=== PATIENT | male | born 1930 | race Caucasian/White ===

== ENCOUNTER 2018-09-10 06:38 | Day surgery (SDC) | payer MEDICARE, BC ==
[2018-09-10] MEDS ORDERED: Dextrose 5%-Lactated Ringers 1,000 ML IV SCH (07:15)
[2018-09-10] MEDS ORDERED: fentaNYL 100 MCG/2 ML SDV ONE (07:51)
[2018-09-10] MEDS ORDERED: Propofol 200 MG/20 ML SDV ONE ×2 (07:51→09:27)
[2018-09-10] MEDS ORDERED: ceFAZolin 2 GM in Premix Bag 1 BAG IV ONE (08:15)
[2018-09-10] MEDS ORDERED: Bupivacaine 0.5% 50 ML MDV ONE (08:22)
[2018-09-10] MEDS ORDERED: Lidocaine 1% with EPINEPHrine 1:100,000 50 ML MDV ONE (08:22)
[2018-09-10] MEDS ORDERED: Acetaminophen 325 MG Tab PO ONE (10:09)
[2018-09-10] MEDS ORDERED: [UNRECOGNIZED DRUG - OTHER] IV ONE (10:09)
[2018-09-10] MEDS ORDERED: diphenhydrAMINE 25 MG Cap PO ONE (10:09)
[2018-09-10] MEDS ORDERED: IMMUNE GLOBULIN IV ONE (10:09)
[2018-09-10] MEDS ORDERED: Sodium Chloride 0.9% 1,000 ML IV SCH (10:50)
[2018-09-10] MEDS ORDERED: [UNRECOGNIZED DRUG - MIXTURE] IV ONE (11:00)
--- NOTE | 2018-09-16 15:16 | OR ---
DATE OF PROCEDURE: 09/10/2018 PREOPERATIVE DIAGNOSIS: Indication for central venous access. POSTOPERATIVE DIAGNOSIS: Indication for central venous access. OPERATIVE PROCEDURE: Placement of Bard port via left subclavian vein approach ([id number]). ANESTHESIA: Local plus IV sedation. INDICATIONS FOR PROCEDURE: This is an 88-year-old with diagnosis of chronic inflammatory demyelinating polyneuropathy, who receives more or less weekly IV immunoglobulin infusions and, at this point, has very limited peripheral venous access, and central line is to be placed to facilitate his ongoing care. Potential risks of the port placement including bleeding, infection, injury to the vasculature and/or lungs, the possibility of the port becoming infected or occluded were all reviewed, and the patient wishes to proceed. DETAILS OF PROCEDURE: The patient was taken to the operating room and placed in a supine position. IV sedation was administered, after which the upper chest and neck areas were prepped and draped. The left subclavian area was then anesthetized with 1% lidocaine, and the left subclavian vein was cannulated. A guidewire was passed and manipulated into the superior vena cava. Some additional local was then injected and a transverse infraclavicular incision was made, carried down through the skin and subcutaneous tissue, and pectoralis major fascia. At that plane, a port pocket was constructed bluntly, and the Bard port was then assembled, flushed with heparinized saline, and the port placed into the pocket. The catheter was cut such that the tip would lie in the area of the superior vena cava and right atrial junction. Over the introducer and peel-away catheter, the Bard port catheter was placed without difficulty. Good in and outflow was noted, and the port was flushed with heparinized saline once again. Incision was then closed with 4-0 Vicryl stitch deep and a 5-0 Vicryl subcuticular stitch. Dressing was applied. The patient was taken to the recovery room in a satisfactory condition. Port was left to access today as he is undergoing the IVIG infusion later today. Abhishek Blanca MD /[id number]
== END 2018-09-10 14:20 | disposition home or self-care (01) ==
LOC: JP.SDS 06:38
PROVIDERS: ATTEND Surgery
DX: G61.81 Chronic inflammatory demyelinating polyneuritis (principal); G30.9 Alzheimer's disease, unspecified; N40.0 Benign prostatic hyperplasia without lower urinary tract symptoms
CPT/HCPCS: 36561; 76000; A9270; C1788; J1568; J1572; J1642; J2020; J2704; J3010; J3490; J7030; J7042

== ENCOUNTER 2018-10-19 12:45 | Inpatient (IN) | payer MEDICARE, BC ==
[2018-10-19] MEDS ORDERED: Sodium Chloride 0.9% 1,000 ML IV SCH ×2 (13:15→15:30)
--- NOTE | 2018-10-19 13:37 | EDM.PDOC ---
ED HPI GENERAL MEDICAL PROBLEM - General Chief Complaint: General Stated Complaint: MEDICAL [facility]IA [facility] Time Seen by Provider: 10/19/18 13:00 Source of Information: Reports: Patient, EMS, Family History Limitations: Reports: Altered Mental Status - History of Present Illness INITIAL COMMENTS - FREE TEXT/NARRATIVE: 88-year-old male who is usually very engaged, active and alert over the past 12- 24 hours has been somnolent and less responsive. He is still answering questions , has no specific complaints. Denies any pain or falls. No fever. He was hypotensive on arrival per EMS and in route, his blood pressure is 80/43. He is not tachycardic. No active bleeding, no nausea or vomiting or diarrhea. 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 No known falls or trauma. Onset: Gradual (12-24 hours) Associated Symptoms: Reports: Confusion, Malaise, Weakness. Denies: Chest Pain , Cough, Diaphoresis, Nausea/Vomiting, Shortness of Breath - Related Data Allergies Allergy/AdvReac Type Severity Reaction Status Date / Time No Known Allergies Allergy Verified 10/19/18 13:01 Home Meds: Home Meds Escitalopram Oxalate 10 mg PO DAILY 07/16/18 [History] Lactobacillus Acidophilus [Probiotic] 1 each PO BID 07/16/18 [History] Memantine HCl/Donepezil HCl [Namzaric 7 mg-10 mg Capsule] 7 mg PO DAILY [History] Multivitamin [Multivitamins] 1 each PO DAILY 07/16/18 [History] Mycophenolate Mofetil 1,000 mg PO BID 07/16/18 [History] Tamsulosin HCl 0.4 mg PO DAILY 07/16/18 [History] Aspirin/Acetaminophen/Caffeine [Extra Pain Relief Caplet] 1 tab PO DAILY [History] Mirtazapine 15 mg PO BEDTIME 10/19/18 [History] Past Medical History HEENT History: Reports: Hard of Hearing Genitourinary History: Reports: BPH Neurological History: Reports: Alzheimers Disease, Other (See Below) 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 Psychiatric History: Reports: Anxiety Immunologic History: Reports: Other (See Below) Other 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 - Infectious Disease History Infectious Disease History: Reports: Chicken Pox, Shingles - Past Surgical History HEENT Surgical History: Reports: Cataract Surgery GI Surgical History: Reports: Colonoscopy Musculoskeletal Surgical History: Reports: Other (See Below) Other Musculoskeletal Surgeries/Procedures:: knee surgery after kicked by horse Social & Family History - Family History Family Medical History: Noncontributory - Tobacco Use Smoking Status *Q: Never Smoker - Caffeine Use Caffeine Use: Reports: Coffee - Recreational Drug Use Recreational Drug Use: No ED ROS GENERAL - Review of Systems Review Of Systems: See Below Constitutional: Denies: Fever, Chills Respiratory: Denies: Shortness of Breath Cardiovascular: Denies: Chest Pain GI/Abdominal: Reports: Decreased Appetite. Denies: Abdominal Pain, Nausea, Vomiting Skin: Reports: Pallor Neurological: Reports: Weakness. Denies: Dizziness, Headache ED EXAM, GENERAL - Physical Exam Exam: See Below Exam Limited By: No Limitations General Appearance: No Apparent Distress, Lethargic, Other (Patient is arousable by voice and tactile stimulation, but tends to fall asleep without stimulation) Eye Exam: Bilateral Eye: EOMI Head: Atraumatic Neck: Non-Tender Respiratory/Chest: No Respiratory Distress, Lungs Clear Cardiovascular: Regular Rate, Rhythm, Extra Beats. No: Tachycardia GI/Abdominal: Soft, Non-Tender Extremities: No: Pedal Edema Neurological: Inattentive, Slow to Respond Psychiatric: Flat Affect Skin Exam: Warm, Dry Course - Vital Signs Last Recorded V/S: Last Vital Signs Temp 100.6 F 10/20/18 05:06 Pulse 74 10/20/18 05:01 Resp 18 10/20/18 05:01 BP 104/44 L 10/20/18 05:01 Pulse Ox 93 L 10/20/18 05:01 - Orders/Labs/Meds Orders: Active Orders 24 hr Category Date Time Status CULTURE URINE [RM] Stat Lab 10/19/18 14:38 Received Medication Orders Acetaminophen (Tylenol) 650 mg PO Q4H PRN PRN Reason: Pain (Mild 1-3)/fever Last Admin: 10/20/18 04:36 Dose: 650 mg Dimethicone/Zinc Oxide (Rash Relief-Zinc Oxide [place]) 1 gm TOP ASDIRECTED PRN PRN Reason: redness Last Admin: 10/19/18 20:10 Dose: 1 spray Escitalopram Oxalate (Lexapro) 10 mg PO DAILY [facility] Haloperidol Lactate (Haldol) 1 mg IVPUSH Q4H PRN PRN Reason: Agitation Ceftriaxone Sodium 1 gm/ (Sodium Chloride) 50 mls @ 100 mls/hr IV Q24H [facility] Sodium Chloride (Normal Saline) 1,000 mls @ 125 mls/hr IV ASDIRECTED [facility] Last Admin: 10/20/18 01:42 Dose: 125 mls/hr Infusion: 10/20/18 01:42 Dose: 125 mls/hr Admin: 10/19/18 18:05 Dose: 125 mls/hr Lactobacillus Rhamnosus (Culturelle) 1 cap PO BID [facility] Last Admin: 10/19/18 20:09 Dose: 1 cap Lorazepam (Ativan) 0.5 mg IVPUSH Q4H PRN PRN Reason: Nausea/Vomiting Magnesium Hydroxide (Milk Of Magnesia) 30 ml PO Q12H PRN PRN Reason: Constipation Melatonin (Melatonin) 9 mg PO BEDTIME [facility] Last Admin: 10/19/18 20:09 Dose: 9 mg Mirtazapine (Remeron) 15 mg PO BEDTIME [facility] Last Admin: 10/19/18 20:09 Dose: 15 mg Mycophenolate Mofetil (Cellcept) 1,000 mg PO BID [facility] Last Admin: 10/19/18 20:26 Dose: 1,000 mg [Namzaric 7 Mg-10 Mg Capsule]*Pt Own Med * 7 mg PO DAILY [facility] Ondansetron HCl (Zofran Odt) 4 mg PO Q6H PRN PRN Reason: Nausea able to take PO Ondansetron HCl (Zofran) 4 mg IV Q6H PRN PRN Reason: Nausea/Vomiting Senna/Docusate Sodium (Senna Plus) 1 tab PO BID PRN PRN Reason: Constipation Tamsulosin HCl (Flomax) 0.4 mg PO DAILY [facility] Labs: Laboratory Tests 10/19/18 10/19/18 10/19/18 Range/Units 13:25 13:25 14:18 WBC 16.5 H (4.5-11.0) K/uL RBC 3.35 L (4.30-5.90) M/uL Hgb 9.9 L (12.0-15.0) g/dL Hct 32.3 L (40.0-54.0) % MCV 96 (80-98) fL MCH 30 (27-31) pg MCHC 31 L (32-36) % Plt Count 113 L (150-400) K/uL Add Manual Diff Yes Neutrophils % (Manual) 81 H (36-66) % Band Neutrophils % 10 (5-11) % Lymphocytes % (Manual) 4 L (24-44) % Monocytes % (Manual) 5 (2-6) % Sodium 139 L (140-148) mmol/L Potassium 3.4 L (3.6-5.2) mmol/L Chloride 103 (100-108) mmol/L Carbon Dioxide 24 (21-32) mmol/L Anion Gap 15.4 H (5.0-14.0) mmol/L BUN 41 H (7-18) mg/dL Creatinine 1.9 H (0.8-1.3) mg/dL Est Cr Clr Drug Dosing 27.94 mL/min Estimated GFR (MDRD) 34 L (>60) Glucose 170 H (74-106) mg/dL Calcium 8.4 L (8.5-10.1) mg/dL Total Bilirubin 0.7 (0.2-1.0) mg/dL AST 66 H (15-37) U/L ALT 121 H (12-78) U/L Alkaline Phosphatase 153 H (46-116) U/L Troponin I 0.267 H* (0.000-0.056) ng/mL Total Protein 7.1 (6.4-8.2) g/dL Albumin 2.2 L (3.4-5.0) g/dL Globulin 4.9 H (2.3-3.5) g/dL Albumin/Globulin Ratio 0.5 L (1.2-2.2) Urine Color Yellow (YELLOW) Urine Appearance Cloudy A (CLEAR) Urine pH 5.5 (5.0-8.0) Ur Specific [place] 1.025 (1.008-1.030) Urine Protein 100 H (NEGATIVE) mg/dL Urine Glucose (UA) Negative (NEGATIVE) mg/dL Urine Ketones Negative (NEGATIVE) mg/dL Urine Occult Blood Trace-intact H (NEGATIVE) Urine Nitrite Negative (NEGATIVE) Urine Bilirubin Small H (NEGATIVE) Urine Urobilinogen 1.0 (0.2-1.0) EU/dL Ur Leukocyte Esterase Negative (NEGATIVE) Urine RBC 0-5 (0-5) Urine WBC 0-5 (0-5) Ur Epithelial Cells Moderate Amorphous Sediment Many Urine Bacteria Many Urine Mucus Moderate Urine Other Meds: Medications Generic Name Dose Route Start Last Admin Trade Name Freq PRN Reason Stop Dose Admin Acetaminophen 650 mg 10/19/18 16:31 10/20/18 04:36 Tylenol PO 650 mg Q4H PRN Administration Pain (Mild 1-3)/fever Dimethicone/Zinc Oxide 1 gm 10/19/18 19:53 10/19/18 20:10 Rash Relief-Zinc Oxide [place] TOP 1 spray ASDIRECTED PRN Administration redness Escitalopram Oxalate 10 mg 10/20/18 09:00 Lexapro PO DAILY [facility] Haloperidol Lactate 1 mg 10/19/18 16:31 Haldol IVPUSH Q4H PRN Agitation Ceftriaxone Sodium 1 gm/ 50 mls @ 100 mls/hr 10/20/18 15:00 Sodium Chloride IV Q24H [facility] Sodium Chloride 1,000 mls @ 125 mls/hr 10/19/18 16:31 10/20/18 01:42 Normal Saline IV 125 mls/hr ASDIRECTED [facility] Administration Lactobacillus Rhamnosus 1 cap 10/19/18 21:00 10/19/18 20:09 Culturelle PO 1 cap BID [facility] Administration Lorazepam 0.5 mg 10/19/18 16:31 Ativan IVPUSH Q4H PRN Nausea/Vomiting Magnesium Hydroxide 30 ml 10/19/18 16:31 Milk Of Magnesia PO Q12H PRN Constipation Melatonin 9 mg 10/19/18 21:00 10/19/18 20:09 Melatonin PO 9 mg BEDTIME [facility] Administration Mirtazapine 15 mg 10/19/18 21:00 10/19/18 20:09 Remeron PO 15 mg BEDTIME [facility] Administration Mycophenolate Mofetil 1,000 mg 10/19/18 21:00 10/19/18 20:26 Cellcept PO 1,000 mg BID [facility] Administration [Namzaric 7 Mg-10 Mg 7 mg 10/20/18 09:00 Capsule]*Pt Own Med PO * DAILY [facility] Ondansetron HCl 4 mg 10/19/18 16:31 Zofran Odt PO Q6H PRN Nausea able to take PO Ondansetron HCl 4 mg 10/19/18 16:31 Zofran IV Q6H PRN Nausea/Vomiting Senna/Docusate Sodium 1 tab 10/19/18 16:31 Senna Plus PO BID PRN Constipation Tamsulosin HCl 0.4 mg 10/20/18 09:00 Flomax PO DAILY T[facility] Discontinued Medications Generic Name Dose Route Start Last Admin Trade Name Matias PRN Reason Stop Dose Admin Sodium Chloride 1,000 mls @ 500 mls/hr 10/19/18 13:15 10/19/18 13:26 Normal Saline IV 500 mls/hr ASDIRECTED [facility] Administration Ceftriaxone Sodium 1 gm/ 50 mls @ 100 mls/hr 10/19/18 14:35 10/19/18 14:49 Sodium Chloride IV 10/19/18 15:04 100 mls/hr ONETIME ONE Administration Sodium Chloride 1,000 mls @ 999 mls/hr 10/19/18 15:30 Normal Saline IV 10/19/18 16:31 ASDIRECTED [facility] - Re-Assessments/Exams Free Text/Narrative Re-Assessment/Exam: 10/19/18 13:52 CBC, CMP and troponin obtained, 1 L of normal saline bolus initiated. UA will be attempted and a CT of the head obtained. 10/19/18 14:46 White count 16,000, hemoglobin 9.9. Troponin returned elevated at 0.26. Renal function is also poor, and we have no previous labs to compare. We will try to get in to [place] records to achieve some baseline laboratory results. Patient is DNR and family left at this time, we will wait to return to see how aggressive they want treatment. He'll be given 1 g of Rocephin IV as his catheter UA shows many bacteria but no inflammatory response. Patient woke up while being catheterized and commented that it hurt. As soon as the procedure was done he fell back asleep. CT of the head was negative. Departure - Departure Time of Disposition: 17:22 Disposition: Admitted As Inpatient 67 Clinical Impression: Complicated urinary tract infection, CKD (chronic kidney disease), stage III Change in mental status Qualifiers: Altered mental status type: somnolence Qualified Code(s): R40.0 - Somnolence - Discharge Information - My Orders Last 24 Hours: My Active Orders 10/19/18 14:38 CULTURE URINE [RM] Stat - Assessment/Plan Last 24 Hours: My Active Orders 10/19/18 14:38 CULTURE URINE [RM] Stat
--- NOTE | 2018-10-19 14:22 | CRLCT ---
INDICATION: Somnolence, mental status change COMPARISON: none TECHNIQUE: A CT volumetric acquisition was performed of the brain without IV contrast. Please note that all CT scans at this facility use dose modulation, iterative reconstruction, and/or weight-based dosing when appropriate to reduce radiation dose to as low as reasonably achievable. FINDINGS: Generalized cortical atrophy is present. No intracranial mass, mass effect or hemorrhage. No extra-axial fluid collection. Patchy areas of low attenuation in the white matter bilaterally which are nonspecific but likely related to small vessel ischemic disease. Visualized sinuses are clear. No fracture. Bilateral hearing aid hardware. IMPRESSION: No acute intracranial pathology. Mild generalized cortical atrophy and chronic white matter changes. Please note that all CT scans at this facility use dose modulation, iterative reconstruction, and/or weight-based dosing when appropriate to reduce radiation dose to as low as reasonably achievable. Dictated by Gerard Smith MD @ Oct 19 2018 2:15PM Signed by Dr. Gerard Smith @ Oct 19 2018 2:19PM
[2018-10-19] MEDS ORDERED: cefTRIAXone 1 GM in Sodium Chloride 0.9% 50 ML IV ONE (14:35)
--- NOTE | 2018-10-19 15:30 | PCM.HP.2 ---
H&P History of Present Illness - General Date of Service: 10/19/18 Admit Problem/Dx: Admission Diagnosis/Problem Admission Diagnosis/Problem Complicated urinary tract infection Source of Information: Family, Provider. No: Patient History Limitations: Reports: Altered Mental Status - History of Present Illness Initial Comments - Free Text/Narative: CC: lethargic HPI: [place] presents to the ED from [facility] living by ambulance. He has advanced dementia and is not able to provide reliable history. History is gathered from his family and emergency room personnel. Assisted living staff noted that the patient was more lethargic than usual today. They report that normally he is active and alert. Family noticed that he was a little off yesterday but nothing specific. When I attempted to get a review of systems the patient was not sure if he had any of the discussed symptoms. He was not sure if he had pain. He was not able to provide any sort of reliable usable history. Workup in the emergency room did reveal suspicion for urinary tract infection with many bacteria in his urine. His creatinine is 1.9 with a GFR of 34 and unknown baseline. Troponin is elevated at 0.26. He is hypotensive but not tachycardic. He has received 1 L of fluid so far. Case was discussed with his family. They were not interested in transfer for aggressive intervention such as cardiac catheterization. They report date declining quality of life and are not interested in aggressive or potentially painful interventions. They were agreeable to hospitalization for antibiotics and IV fluids to see if this condition can be treated conservatively. - Related Data Allergies/Adverse Reactions: Allergies Allergy/AdvReac Type Severity Reaction Status Date / Time No Known Allergies Allergy Verified 10/19/18 13:01 Home Medications: Home Meds Escitalopram Oxalate 10 mg PO DAILY 07/16/18 [History] Lactobacillus Acidophilus [Probiotic] 1 each PO BID 07/16/18 [History] Memantine HCl/Donepezil HCl [Namzaric 7 mg-10 mg Capsule] 7 mg PO DAILY [History] Mirtazapine 15 mg PO DAILY 07/16/18 [History] Multivitamin [Multivitamins] 1 each PO DAILY 07/16/18 [History] Mycophenolate Mofetil 1,000 mg PO BID 07/16/18 [History] Tamsulosin HCl 0.4 mg PO DAILY 07/16/18 [History] Aspirin/Acetaminophen/Caffeine [Extra Pain Relief Caplet] 1 tab PO DAILY [History] Past Medical History HEENT History: Reports: Hard of Hearing Genitourinary History: Reports: BPH Neurological History: Reports: Alzheimers Disease, Other (See Below) 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 Psychiatric History: Reports: Anxiety Immunologic History: Reports: Other (See Below) Other 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 - Infectious Disease History Infectious Disease History: Reports: Chicken Pox, Shingles - Past Surgical History HEENT Surgical History: Reports: Cataract Surgery GI Surgical History: Reports: Colonoscopy Musculoskeletal Surgical History: Reports: Other (See Below) Other Musculoskeletal Surgeries/Procedures:: knee surgery after kicked by horse Social & Family History - Family History Family Medical History: Noncontributory - Tobacco Use Smoking Status *Q: Never Smoker - Caffeine Use Caffeine Use: Reports: Coffee - Alcohol Use Alcohol Use History: No - Recreational Drug Use Recreational Drug Use: No H&P Review of Systems - Review of Systems: Review Of Systems: Unable To Obtain (advanced dementia) Exam - Exam Exam: See Below - Vital Signs Vital Signs: Last Vital Signs Temp 36.3 C 10/19/18 13:27 Pulse 67 10/19/18 14:24 Resp 20 10/19/18 14:24 BP 81/42 L 10/19/18 14:24 Pulse Ox 95 10/19/18 14:24 Weight: 72.121 kg - Exam Quality Assessment: No: Supplemental Oxygen General: Alert, Cooperative. No: Oriented, Mild Distress HEENT: Conjunctiva Clear. No: Mucosa Moist & [place] (dry), Scleral Icterus Neck: Supple, Trachea Midline. No: Lymphadenopathy Lungs: Clear to Auscultation, Normal Respiratory Effort Cardiovascular: Regular Rate, Regular Rhythm, Other (port left upper chest ). No: Systolic Murmur GI/Abdominal Exam: Normal Bowel Sounds, Soft, Non-Tender, No Distention Extremities: No Pedal Edema. No: Increased Warmth Skin: Warm, Dry, Intact. No: Ecchymosis Neuro Extensive - Mental Status: Alert, Nl Response to Commands. No: Oriented x3 Neuro Extensive - Motor, Sensory, Reflexes: No: Dysarthria, Abnormal Motor, Tremor Psychiatric: Alert, Normal Affect - Patient Data Lab Results Last 24 hrs: Laboratory Results - last 24 hr 10/19/18 10/19/18 10/19/18 Range/Units 13:25 13:25 14:18 WBC 16.5 H (4.5-11.0) K/uL RBC 3.35 L (4.30-5.90) M/uL Hgb 9.9 L (12.0-15.0) g/dL Hct 32.3 L (40.0-54.0) % MCV 96 (80-98) fL MCH 30 (27-31) pg MCHC 31 L (32-36) % Plt Count 113 L (150-400) K/uL Add Manual Diff Yes Neutrophils % (Manual) 81 H (36-66) % Band Neutrophils % 10 (5-11) % Lymphocytes % (Manual) 4 L (24-44) % Monocytes % (Manual) 5 (2-6) % Sodium 139 L (140-148) mmol/L Potassium 3.4 L (3.6-5.2) mmol/L Chloride 103 (100-108) mmol/L Carbon Dioxide 24 (21-32) mmol/L Anion Gap 15.4 H (5.0-14.0) mmol/L BUN 41 H (7-18) mg/dL Creatinine 1.9 H (0.8-1.3) mg/dL Est Cr Clr Drug Dosing 27.94 mL/min Estimated GFR (MDRD) 34 L (>60) Glucose 170 H (74-106) mg/dL Calcium 8.4 L (8.5-10.1) mg/dL Total Bilirubin 0.7 (0.2-1.0) mg/dL AST 66 H (15-37) U/L ALT 121 H (12-78) U/L Alkaline Phosphatase 153 H (46-116) U/L Troponin I 0.267 H* (0.000-0.056) ng/mL Total Protein 7.1 (6.4-8.2) g/dL Albumin 2.2 L (3.4-5.0) g/dL Globulin 4.9 H (2.3-3.5) g/dL Albumin/Globulin Ratio 0.5 L (1.2-2.2) Urine Color Yellow (YELLOW) Urine Appearance Cloudy A (CLEAR) Urine pH 5.5 (5.0-8.0) Ur Specific [place] 1.025 (1.008-1.030) Urine Protein 100 H (NEGATIVE) mg/dL Urine Glucose (UA) Negative (NEGATIVE) mg/dL Urine Ketones Negative (NEGATIVE) mg/dL Urine Occult Blood Trace-intact H (NEGATIVE) Urine Nitrite Negative (NEGATIVE) Urine Bilirubin Small H (NEGATIVE) Urine Urobilinogen 1.0 (0.2-1.0) EU/dL Ur Leukocyte Esterase Negative (NEGATIVE) Urine RBC 0-5 (0-5) Urine WBC 0-5 (0-5) Ur Epithelial Cells Moderate Amorphous Sediment Many Urine Bacteria Many Urine Mucus Moderate Urine Other Result Diagrams: 10/19/18 13:25 10/19/18 13:25 Imaging Impressions Last 24 hrs: Head CT - images personally reviewed - mild atrophy but no acute findings. No mass, bleed or stroke *Q Meaningful Use (ADM) - VTE Risk Assess *Q Each Risk Factor Represents 1 Point: Sepsis Total Score 1 Point Risk Factors: 1 Each Risk Factor Represents 2 Points: None Total Score 2 Point Risk Factors: 0 Each Risk Factor Represents 3 Points: Age 75 Years or Greater Total Score 3 Point Risk Factors: 3 Each Risk Factor Represents 5 Points: None Total Score 5 Point Risk Factors: 0 Venous Thromboembolism Risk Factor Score *Q: 4 - Problem List (1) Complicated urinary tract infection SNOMED Code(s): 86643953 ICD Code: N39.0 - URINARY TRACT INFECTION, SITE NOT SPECIFIED Status: Acute Current Visit: Yes (2) Sepsis SNOMED Code(s): 95209912 ICD Code: A41.9 - SEPSIS, UNSPECIFIED ORGANISM Status: Acute Current Visit: Yes Qualifiers: Sepsis type: sepsis due to unspecified organism Sepsis acute organ dysfunction status: with acute organ dysfunction Severe sepsis acute organ dysfunction type: unspecified Severe sepsis shock status: without septic shock Qualified Code(s): A41.9 - Sepsis, unspecified organism; R65.20 - Severe sepsis without septic shock (3) Elevated troponin SNOMED Code(s): 805262585, 504716667, 306561105 ICD Code: R74.8 - ABNORMAL LEVELS OF OTHER SERUM ENZYMES Status: Acute Current Visit: Yes (4) CKD (chronic kidney disease), stage III SNOMED Code(s): 760268881 ICD Code: N18.3 - CHRONIC KIDNEY DISEASE, STAGE 3 (MODERATE) Status: Chronic Current Visit: Yes (5) CIDP (chronic inflammatory demyelinating polyneuropathy) SNOMED Code(s): 080451430 ICD Code: G61.81 - CHRONIC INFLAMMATORY DEMYELINATING POLYNEURITIS Status: Chronic Current Visit: Yes (6) Alzheimer's dementia without behavioral disturbance SNOMED Code(s): 99087466 ICD Code: G30.9 - ALZHEIMER'S DISEASE, UNSPECIFIED; F02.80 - DEMENTIA IN OTH DISEASES CLASSD ELSWHR W/O BEHAVRL DISTURB Status: Chronic Current Visit: Yes Qualifiers: Alzheimer's disease onset: late-onset Qualified Code(s): G30.1 - Alzheimer' s disease with late onset; F02.80 - Dementia in other diseases classified elsewhere without behavioral disturbance (7) Encounter for palliative care SNOMED Code(s): 565720171 ICD Code: Z51.5 - ENCOUNTER FOR PALLIATIVE CARE Status: Acute Current Visit: Yes Problem List Initiated/Reviewed/Updated: Yes Orders Last 24hrs: Active Orders 24 hr Category Date Time Status Patient Status Manage Transfer [TRANSFER] Routine ADT 10/19/18 15:20 Ordered CULTURE URINE [RM] Stat Lab 10/19/18 14:38 Received Sodium Chloride 0.9% [Normal Saline] 1,000 ml Med 10/19/18 13:15 Active IV ASDIRECTED Sodium Chloride 0.9% [Normal Saline] 1,000 ml Med 10/19/18 15:30 Active IV ASDIRECTED Resuscitation Status Routine Resus Stat 10/19/18 15:22 Ordered Medication Orders Sodium Chloride (Normal Saline) 1,000 mls @ 500 mls/hr IV ASDIRECTED TERRANCE Last Admin: 10/19/18 13:26 Dose: 500 mls/hr Sodium Chloride (Normal Saline) 1,000 mls @ 999 mls/hr IV ASDIRECTED TERRANCE Stop: 10/19/18 16:31 Assessment/Plan Comment:: ASSESSMENT AND PLAN - Complicated urinary tract infection with sepsis - patient has known BPH. Evidence for sepsis includes hypotension, confusion and organ dysfunction including elevated troponin and elevated creatinine from baseline (suspected). He has received 1 L fluid in the emergency room. He has received antibiotics and cultures have been obtained. -Continue empiric ceftriaxone -Second liter of fluid via bolus -Gentle infusion of fluids after bolus -Follow-up urine culture Suspected acute on chronic kidney disease - unknown baseline for his kidney function. Creatinine currently at 1.9. -Management as above -Repeat labs in the morning Chronic inflammatory demyelinating polyneuropathy - patient is on immune suppressing medications at this time. He receives weekly infusions of IVIG. -Hold off on weekly treatment until infection improves -Continue MMF Late onset Alzheimer's dementia without behavioral disturbance - stable at this time. -Continue home medications -Melatonin at bedtime Encounter for palliative care - patient has a DO NOT RESUSCITATE order. Family is not interested in transfer for aggressive workup or intervention with his elevated troponin. They are interested in palliative and conservative management for this infection and resulting conditions. Maintenance issues - - DVT prophylaxis - REGGIE stockings - GI prophylaxis - not indicated - Nutrition - regular diet as tolerated - Mckay catheter - not indicated CODE STATUS - DNR/DNI Admission justification - This patient will be admitted for inpatient services and is medically appropriate meeting medical necessity for inpatient admission as outlined in my documentation. I reasonably expect the patient will require inpatient services that span a period time over 2 midnights. I reasonably expect this patient to be discharged or transferred within 96 hours [facility] Disposition - I would anticipate discharge either back to assisted living or possibly to the snf Primary care physician - Samir Crump M.D. - Mortality Measure Prognosis:: Poor
[2018-10-19] MEDS ORDERED: Ondansetron 4 MG/2 ML SDV IV PRN (16:31)
[2018-10-19] MEDS ORDERED: LORazepam 2 MG/ML SDV IVPUSH PRN (16:31)
[2018-10-19] MEDS ORDERED: Haloperidol Lactate 5 MG/ML SDV IVPUSH PRN (16:31)
[2018-10-19] MEDS ORDERED: Magnesium Hydroxide 400 MG/5 ML Susp 30 ML Cup PO PRN (16:31)
[2018-10-19] MEDS: Sodium Chloride 0.9% 1,000 ML IV SCH (18:05)
[2018-10-19] MEDS ORDERED: Dimethicone 20%/Zinc Oxide 25% 56 GM Spray Bottle TOP PRN (19:53)
[2018-10-19] MEDS: Mirtazapine 15 MG Tab PO SCH (20:09)
[2018-10-19] MEDS: Lactobacillus Rhamnosus GG (Probiotic) Cap PO SCH (20:09)
[2018-10-19] MEDS: Melatonin 3 MG Tab PO SCH (20:09)
[2018-10-19] MEDS: Mycophenolate Mofetil 250 MG Cap PO SCH (20:26)
[2018-10-20] MEDS: Sodium Chloride 0.9% 1,000 ML IV SCH ×2 (01:42→18:13)
[2018-10-20] MEDS: Acetaminophen 325 MG Tab PO PRN (04:36)
[2018-10-20] MEDS: Escitalopram 10 MG Tab PO SCH (08:57)
[2018-10-20] MEDS: Tamsulosin 0.4 MG Cap.ER PO SCH (08:57)
[2018-10-20] MEDS: Lactobacillus Rhamnosus GG (Probiotic) Cap PO SCH ×2 (08:57→20:29)
[2018-10-20] MEDS: Mycophenolate Mofetil 250 MG Cap PO SCH ×2 (08:58→20:29)
--- NOTE | 2018-10-20 10:13 | PCM.PN ---
- General Info Date of Service: 10/20/18 Subjective Update: There were no acute events overnight. The patient slept well. He reports that he feels well and offers no complaints. No complaints of shortness of breath or abdominal pain. Not much of an appetite. He did have a fever overnight. Cultures are still pending. He is much more alert and interactive today. Functional Status: Reports: Pain Controlled, Tolerating Diet - Review of Systems General: Reports: Fever - Patient Data Vitals - Most Recent: Last Vital Signs Temp 36.4 C 10/20/18 07:37 Pulse 62 10/20/18 07:37 Resp 14 10/20/18 07:37 BP 96/44 L 10/20/18 07:37 Pulse Ox 97 10/20/18 07:37 Weight - Most Recent: 66.043 kg I&O - Last 24 Hours: Intake & Output 10/19/18 10/20/18 10/20/18 22:59 06:59 14:59 Intake Total 240 1704 Output Total 50 150 Balance 190 1554 Lab Results Last 24 Hours: Laboratory Results - last 24 hr 10/19/18 10/19/18 10/19/18 Range/Units 13:25 13:25 14:18 WBC 16.5 H (4.5-11.0) K/uL RBC 3.35 L (4.30-5.90) M/uL Hgb 9.9 L (12.0-15.0) g/dL Hct 32.3 L (40.0-54.0) % MCV 96 (80-98) fL MCH 30 (27-31) pg MCHC 31 L (32-36) % Plt Count 113 L (150-400) K/uL Add Manual Diff Yes Neutrophils % (Manual) 81 H (36-66) % Band Neutrophils % 10 (5-11) % Lymphocytes % (Manual) 4 L (24-44) % Monocytes % (Manual) 5 (2-6) % Sodium 139 L (140-148) mmol/L Potassium 3.4 L (3.6-5.2) mmol/L Chloride 103 (100-108) mmol/L Carbon Dioxide 24 (21-32) mmol/L Anion Gap 15.4 H (5.0-14.0) mmol/L BUN 41 H (7-18) mg/dL Creatinine 1.9 H (0.8-1.3) mg/dL Est Cr Clr Drug Dosing 27.94 mL/min Estimated GFR (MDRD) 34 L (>60) Glucose 170 H (74-106) mg/dL Calcium 8.4 L (8.5-10.1) mg/dL Total Bilirubin 0.7 (0.2-1.0) mg/dL AST 66 H (15-37) U/L ALT 121 H (12-78) U/L Alkaline Phosphatase 153 H (46-116) U/L Troponin I 0.267 H* (0.000-0.056) ng/mL Total Protein 7.1 (6.4-8.2) g/dL Albumin 2.2 L (3.4-5.0) g/dL Globulin 4.9 H (2.3-3.5) g/dL Albumin/Globulin Ratio 0.5 L (1.2-2.2) Urine Color Yellow (YELLOW) Urine Appearance Cloudy A (CLEAR) Urine pH 5.5 (5.0-8.0) Ur Specific [place] 1.025 (1.008-1.030) Urine Protein 100 H (NEGATIVE) mg/dL Urine Glucose (UA) Negative (NEGATIVE) mg/dL Urine Ketones Negative (NEGATIVE) mg/dL Urine Occult Blood Trace-intact H (NEGATIVE) Urine Nitrite Negative (NEGATIVE) Urine Bilirubin Small H (NEGATIVE) Urine Urobilinogen 1.0 (0.2-1.0) EU/dL Ur Leukocyte Esterase Negative (NEGATIVE) Urine RBC 0-5 (0-5) Urine WBC 0-5 (0-5) Ur Epithelial Cells Moderate Amorphous Sediment Many Urine Bacteria Many Urine Mucus Moderate Urine Other 10/20/18 10/20/18 Range/Units 04:30 04:30 WBC 9.4 (4.5-11.0) K/uL RBC 3.47 L (4.30-5.90) M/uL Hgb 10.3 L (12.0-15.0) g/dL Hct 32.7 L (40.0-54.0) % MCV 94 (80-98) fL MCH 30 (27-31) pg MCHC 32 (32-36) % Plt Count 122 L (150-400) K/uL Add Manual Diff Neutrophils % (Manual) (36-66) % Band Neutrophils % (5-11) % Lymphocytes % (Manual) (24-44) % Monocytes % (Manual) (2-6) % Sodium 140 (140-148) mmol/L Potassium 3.3 L (3.6-5.2) mmol/L Chloride 106 (100-108) mmol/L Carbon Dioxide 25 (21-32) mmol/L Anion Gap 12.3 (5.0-14.0) mmol/L BUN 47 H (7-18) mg/dL Creatinine 1.5 H (0.8-1.3) mg/dL Est Cr Clr Drug Dosing TNP mL/min Estimated GFR (MDRD) 44 L (>60) Glucose 109 H (74-106) mg/dL Calcium 8.1 L (8.5-10.1) mg/dL Total Bilirubin (0.2-1.0) mg/dL AST (15-37) U/L ALT (12-78) U/L Alkaline Phosphatase (46-116) U/L Troponin I 0.121 H* (0.000-0.056) ng/mL Total Protein (6.4-8.2) g/dL Albumin (3.4-5.0) g/dL Globulin (2.3-3.5) g/dL Albumin/Globulin Ratio (1.2-2.2) Urine Color (YELLOW) Urine Appearance (CLEAR) Urine pH (5.0-8.0) Ur Specific [place] (1.008-1.030) Urine Protein (NEGATIVE) mg/dL Urine Glucose (UA) (NEGATIVE) mg/dL Urine Ketones (NEGATIVE) mg/dL Urine Occult Blood (NEGATIVE) Urine Nitrite (NEGATIVE) Urine Bilirubin (NEGATIVE) Urine Urobilinogen (0.2-1.0) EU/dL Ur Leukocyte Esterase (NEGATIVE) Urine RBC (0-5) Urine WBC (0-5) Ur Epithelial Cells Amorphous Sediment Urine Bacteria Urine Mucus Urine Other Med Orders - Current: Current Medications Acetaminophen (Tylenol) 650 mg PO Q4H PRN PRN Reason: Pain (Mild 1-3)/fever Last Admin: 10/20/18 04:36 Dose: 650 mg Dimethicone/Zinc Oxide (Rash Relief-Zinc Oxide [place]) 1 gm TOP ASDIRECTED PRN PRN Reason: redness Last Admin: 09/14/19 20:10 Dose: 1 spray Escitalopram Oxalate (Lexapro) 10 mg PO DAILY [facility] Last Admin: 10/20/18 08:57 Dose: 10 mg Haloperidol Lactate (Haldol) 1 mg IVPUSH Q4H PRN PRN Reason: Agitation Ceftriaxone Sodium 1 gm/ (Sodium Chloride) 50 mls @ 100 mls/hr IV Q24H [facility] Sodium Chloride (Normal Saline) 1,000 mls @ 125 mls/hr IV ASDIRECTED [facility] Last Admin: 10/20/18 01:42 Dose: 125 mls/hr Potassium Chloride 20 meq/Lidocaine HCl 2 ml/ Sodium Chloride 112 mls @ 50 mls/ hr IV Q2H [facility] Stop: 10/20/18 13:59 Lactobacillus Rhamnosus (Culturelle) 1 cap PO BID [facility] Last Admin: 10/20/18 08:57 Dose: 1 cap Lorazepam (Ativan) 0.5 mg IVPUSH Q4H PRN PRN Reason: Nausea/Vomiting Magnesium Hydroxide (Milk Of Magnesia) 30 ml PO Q12H PRN PRN Reason: Constipation Melatonin (Melatonin) 9 mg PO BEDTIME [facility] Last Admin: 10/19/18 20:09 Dose: 9 mg Mirtazapine (Remeron) 15 mg PO BEDTIME [facility] Last Admin: 10/19/18 20:09 Dose: 15 mg Mycophenolate Mofetil (Cellcept) 1,000 mg PO BID [facility] Last Admin: 10/20/18 08:58 Dose: 1,000 mg [Namzaric 7 Mg-10 Mg Capsule]*Pt Own Med * 7 mg PO DAILY [facility] Last Admin: 10/20/18 09:14 Dose: Not Given Ondansetron HCl (Zofran Odt) 4 mg PO Q6H PRN PRN Reason: Nausea able to take PO Ondansetron HCl (Zofran) 4 mg IV Q6H PRN PRN Reason: Nausea/Vomiting Senna/Docusate Sodium (Senna Plus) 1 tab PO BID PRN PRN Reason: Constipation Tamsulosin HCl (Flomax) 0.4 mg PO DAILY [facility] Last Admin: 10/20/18 08:57 Dose: 0.4 mg Discontinued Medications Sodium Chloride (Normal Saline) 1,000 mls @ 500 mls/hr IV ASDIRECTED [facility] Last Admin: 10/19/18 13:26 Dose: 500 mls/hr Ceftriaxone Sodium 1 gm/ (Sodium Chloride) 50 mls @ 100 mls/hr IV ONETIME ONE Stop: 10/19/18 15:04 Last Admin: 10/19/18 14:49 Dose: 100 mls/hr Sodium Chloride (Normal Saline) 1,000 mls @ 999 mls/hr IV ASDIRECTED [facility] Stop: 10/19/18 16:31 - Exam Quality Assessment: No: Supplemental Oxygen General: Alert, Cooperative, No Acute Distress. No: Oriented HEENT: Pupils Equal Lungs: Clear to Auscultation, Normal Respiratory Effort Cardiovascular: Regular Rate, Regular Rhythm GI/Abdominal Exam: Normal Bowel Sounds, Soft, No Distention Extremities: No Pedal Edema. No: Increased Warmth Skin: Warm, Dry Psy/Mental Status: Alert, Normal Affect - Problem List & Annotations (1) Complicated urinary tract infection SNOMED Code(s): 64964545 Code(s): N39.0 - URINARY TRACT INFECTION, SITE NOT SPECIFIED Status: Acute Current Visit: Yes (2) Sepsis SNOMED Code(s): 49476150 Code(s): A41.9 - SEPSIS, UNSPECIFIED ORGANISM Status: Acute Current Visit : Yes Qualifiers: Sepsis type: sepsis due to unspecified organism Sepsis acute organ dysfunction status: with acute organ dysfunction Severe sepsis acute organ dysfunction type: unspecified Severe sepsis shock status: without septic shock Qualified Code(s): A41.9 - Sepsis, unspecified organism; R65.20 - Severe sepsis without septic shock (3) Elevated troponin SNOMED Code(s): 584682256, 504623937, 538842761 Code(s): R74.8 - ABNORMAL LEVELS OF OTHER SERUM ENZYMES Status: Acute Current Visit: Yes (4) CKD (chronic kidney disease), stage III SNOMED Code(s): 218507750 Code(s): N18.3 - CHRONIC KIDNEY DISEASE, STAGE 3 (MODERATE) Status: Chronic Current Visit: Yes (5) CIDP (chronic inflammatory demyelinating polyneuropathy) SNOMED Code(s): 988371322 Code(s): G61.81 - CHRONIC INFLAMMATORY DEMYELINATING POLYNEURITIS Status: Chronic Current Visit: Yes (6) Alzheimer's dementia without behavioral disturbance SNOMED Code(s): 93428938 Code(s): G30.9 - ALZHEIMER'S DISEASE, UNSPECIFIED; F02.80 - DEMENTIA IN OTH DISEASES CLASSD ELSWHR W/O BEHAVRL DISTURB Status: Chronic Current Visit: Yes Qualifiers: Alzheimer's disease onset: late-onset Qualified Code(s): G30.1 - Alzheimer' s disease with late onset; F02.80 - Dementia in other diseases classified elsewhere without behavioral disturbance (7) Encounter for palliative care SNOMED Code(s): 123914836 Code(s): Z51.5 - ENCOUNTER FOR PALLIATIVE CARE Status: Acute Current Visit: Yes - Problem List Review Problem List Initiated/Reviewed/Updated: Yes - My Orders Last 24 Hours: My Active Orders 10/19/18 15:22 Resuscitation Status Routine 10/19/18 16:31 Patient Status [ADT] Routine Intake and Output [RC] QSHIFT Notify Provider Vital Signs [RC] ASDIRECTED Oxygen Therapy [RC] .PRN Up With Assistance [RC] ASDIRECTED Vital Signs [RC] Q4H Acetaminophen [Tylenol] 650 mg PO Q4H PRN Docusate Sodium/Sennosides [Senna Plus] 1 tab PO BID PRN Haloperidol Lactate [Haldol] 1 mg IVPUSH Q4H PRN LORazepam [Ativan] 0.5 mg IVPUSH Q4H PRN Magnesium Hydroxide [Milk of Magnesia] 30 ml PO Q12H PRN Ondansetron [Zofran ODT] 4 mg PO Q6H PRN Ondansetron [Zofran] 4 mg IV Q6H PRN Sodium Chloride 0.9% [Normal Saline] 1,000 ml IV ASDIRECTED Antiembolic Hose [OM.PC] Routine 10/19/18 19:53 Dimethicone/Zinc Oxide [Rash Relief-Zinc Oxide [place]] 1 gm TOP ASDIRECTED PRN 10/19/18 21:00 Lactobacillus Rhamnosus GG [Culturelle] 1 cap PO BID Melatonin 9 mg PO BEDTIME Mirtazapine [Remeron] 15 mg PO BEDTIME Mycophenolate Mofetil [Cellcept] 1,000 mg PO BID 10/19/18 Dinner Regular Diet [DIET] 10/20/18 09:00 Escitalopram [Lexapro] 10 mg PO DAILY Memantine HCl/Donepezil HCl [Namzaric 7 mg-10 mg Capsule] 7 mg PO DAILY Tamsulosin [Flomax] 0.4 mg PO DAILY 10/20/18 10:00 Potassium Chloride 20 meq Lidocaine 1% [Xylocaine 1%] 2 ml Sodium Chloride 0.9 % [Normal Saline] 100 ml IV Q2H 10/20/18 15:00 cefTRIAXone [Rocephin] 1 gm Sodium Chloride 0.9% [Normal Saline] 50 ml IV Q24H 10/21/18 05:00 BASIC METABOLIC PANEL,BMP [CHEM] Timed CBC W/O DIFF,HEMOGRAM [HEME] Timed (1) 10/21/18 07:00 PT Evaluation and Treatment [CONS] Routine - Plan Plan:: ASSESSMENT AND PLAN - Complicated urinary tract infection with sepsis - patient has known BPH. Sepsis has resolved. Clinically the patient is doing better. Cultures are pending. Tolerating current antibiotics. -Continue empiric ceftriaxone -Second liter of fluid via bolus -Gentle IV fluids -Follow-up urine culture Suspected acute on chronic kidney disease - unknown baseline for his kidney function. Creatinine trending down. -Management as above -Repeat labs in the morning Chronic inflammatory demyelinating polyneuropathy - patient is on immune suppressing medications at this time. He receives weekly infusions of IVIG. -Hold off on weekly treatment until infection improves (due on Sunday) -Continue MMF Late onset Alzheimer's dementia without behavioral disturbance - no behavior issues overnight. -Continue home medications -Melatonin at bedtime Encounter for palliative care - patient has a DO NOT RESUSCITATE order. Family is not interested in transfer for aggressive workup or intervention with his elevated troponin. They are interested in palliative and conservative management for this infection and resulting conditions. Maintenance issues - - DVT prophylaxis - REGGIE stockings - GI prophylaxis - not indicated - Nutrition - regular diet as tolerated - Mckay catheter - not indicated CODE STATUS - DNR/DNI Admission justification - This patient will be admitted for inpatient services and is medically appropriate meeting medical necessity for inpatient admission as outlined in my documentation. I reasonably expect the patient will require inpatient services that span a period time over 2 midnights. I reasonably expect this patient to be discharged or transferred within 96 hours [facility] Disposition - I would anticipate discharge either back to assisted living or possibly to the care home Primary care physician - Samir Crump M.D.
[2018-10-20] MEDS: Potassium Chloride 20 MEQ, Lidocaine 1% 2 ML in Sodium Chloride 0.9% 100 ML IV SCH ×2 (10:42→13:58)
[2018-10-20] MEDS ORDERED: cefTRIAXone 1 GM in Sodium Chloride 0.9% 50 ML IV SCH (15:00)
[2018-10-20] MEDS: Ondansetron 4 MG Tab.DIS PO PRN (17:24)
[2018-10-20] MEDS: Melatonin 3 MG Tab PO SCH (20:28)
[2018-10-20] MEDS: Mirtazapine 15 MG Tab PO SCH (20:29)
[2018-10-21] MEDS: Sodium Chloride 0.9% 1,000 ML IV SCH ×2 (02:01→10:04)
[2018-10-21] MEDS: Acetaminophen 325 MG Tab PO PRN ×2 (04:08→19:42)
[2018-10-21] MEDS: Escitalopram 10 MG Tab PO SCH (08:39)
[2018-10-21] MEDS: Lactobacillus Rhamnosus GG (Probiotic) Cap PO SCH ×2 (08:39→20:00)
[2018-10-21] MEDS: Mycophenolate Mofetil 250 MG Cap PO SCH ×2 (08:39→20:01)
[2018-10-21] MEDS: Tamsulosin 0.4 MG Cap.ER PO SCH (08:42)
[2018-10-21] MEDS ORDERED: Potassium Chloride 20 MEQ Tab.ER PO ONE ×2 (09:00→17:00)
--- NOTE | 2018-10-21 11:36 | CR ---
CHEST: 2 view CLINICAL HISTORY:Fever COMPARISON:None FINDINGS: Heart size and pulmonary vascularity are normal. There is mild generalized prominence in interstitial markings. The there is less than optimal inspiration. There is some ill-definition of the posterior right hemidiaphragm on the lateral view with a minimal patchy density below the dome of the hemidiaphragm on the PA image. This is suspect for pneumonia. No effusion is seen. The patient has a [id number] catheter from the left subclavian approach. Impression: Limited study due to less than optimal impression Suspicion for right lower lobe pneumonic infiltrate Generalized prominence of lung markings. This may be chronic and may be exaggerated by poor aspiration
--- NOTE | 2018-10-21 12:44 | PCM.PN ---
- General Info Date of Service: 10/21/18 Subjective Update: Mr. Durham has been stable over the last 24 hours, he did have recurrent temperature elevation to 101.7 during the night. This morning he is alert and interactive but very confused White blood cell count has improved from admission. He is unable to provide meaningful history concerning symptoms or review of systems because of his dementia. - Patient Data Vitals - Most Recent: Last Vital Signs Temp 99.0 F 10/21/18 07:00 Pulse 62 10/21/18 07:00 Resp 18 10/21/18 07:00 BP 112/54 L 10/21/18 07:00 Pulse Ox 93 L 10/21/18 07:00 Weight - Most Recent: 145 lb 9.6 oz I&O - Last 24 Hours: Intake & Output 10/20/18 10/21/18 10/21/18 22:59 06:59 14:59 Intake Total 750 2938 480 Output Total 200 900 800 Balance 550 2038 -320 Lab Results Last 24 Hours: Laboratory Results - last 24 hr 10/21/18 10/21/18 Range/Units 05:44 05:44 WBC 10.3 (4.5-11.0) K/uL RBC 3.35 L (4.30-5.90) M/uL Hgb 9.9 L (12.0-15.0) g/dL Hct 31.3 L (40.0-54.0) % MCV 93 (80-98) fL MCH 30 (27-31) pg MCHC 32 (32-36) % Plt Count 136 L (150-400) K/uL Sodium 141 (140-148) mmol/L Potassium 3.5 L (3.6-5.2) mmol/L Chloride 110 H (100-108) mmol/L Carbon Dioxide 22 (21-32) mmol/L Anion Gap 12.5 (5.0-14.0) mmol/L BUN 35 H (7-18) mg/dL Creatinine 1.0 (0.8-1.3) mg/dL Est Cr Clr Drug Dosing TNP Estimated GFR (MDRD) > 60 (>60) Glucose 125 H (74-106) mg/dL Calcium 8.1 L (8.5-10.1) mg/dL [place] Results Last 24 Hours: Microbiology 10/19/18 14:38 Urine Culture - Preliminary Urine, Quick Cath (In-Out) NO GROWTH AFTER 1 DAY Med Orders - Current: Current Medications Acetaminophen (Tylenol) 650 mg PO Q4H PRN PRN Reason: Pain (Mild 1-3)/fever Last Admin: 10/21/18 04:08 Dose: 650 mg Dimethicone/Zinc Oxide (Rash Relief-Zinc Oxide [place]) 1 gm TOP ASDIRECTED PRN PRN Reason: redness Last Admin: 10/19/18 20:10 Dose: 1 spray Escitalopram Oxalate (Lexapro) 10 mg PO DAILY [facility] Last Admin: 10/21/18 08:39 Dose: 10 mg Haloperidol Lactate (Haldol) 1 mg IVPUSH Q4H PRN PRN Reason: Agitation Sodium Chloride (Normal Saline) 1,000 mls @ 125 mls/hr IV ASDIRECTED [facility] Last Admin: 10/21/18 10:04 Dose: 125 mls/hr Levofloxacin/Dextrose 750 mg/ (Premix) 150 mls @ 100 mls/hr IV Q24H [facility] Lactobacillus Rhamnosus (Culturelle) 1 cap PO BID [facility] Last Admin: 10/21/18 08:39 Dose: 1 cap Lorazepam (Ativan) 0.5 mg IVPUSH Q4H PRN PRN Reason: Nausea/Vomiting Magnesium Hydroxide (Milk Of Magnesia) 30 ml PO Q12H PRN PRN Reason: Constipation Melatonin (Melatonin) 9 mg PO BEDTIME [facility] Last Admin: 10/20/18 20:28 Dose: 9 mg Mirtazapine (Remeron) 15 mg PO BEDTIME [facility] Last Admin: 10/20/18 20:29 Dose: 15 mg Mycophenolate Mofetil (Cellcept) 1,000 mg PO BID [facility] Last Admin: 10/21/18 08:39 Dose: 1,000 mg [Namzaric 7 Mg-10 Mg Capsule]*Pt Own Med * 7 mg PO DAILY [facility] Last Admin: 10/21/18 08:40 Dose: Not Given Ondansetron HCl (Zofran Odt) 4 mg PO Q6H PRN PRN Reason: Nausea able to take PO Last Admin: 10/20/18 17:24 Dose: 4 mg Ondansetron HCl (Zofran) 4 mg IV Q6H PRN PRN Reason: Nausea/Vomiting Potassium Chloride (Klor-Con M20) 40 meq PO ONETIME ONE Stop: 10/21/18 17:01 Senna/Docusate Sodium (Senna Plus) 1 tab PO BID PRN PRN Reason: Constipation Tamsulosin HCl (Flomax) 0.4 mg PO DAILY [facility] Last Admin: 10/21/18 08:42 Dose: 0.4 mg Discontinued Medications Sodium Chloride (Normal Saline) 1,000 mls @ 500 mls/hr IV ASDIRECTED [facility] Last Admin: 10/19/18 13:26 Dose: 500 mls/hr Ceftriaxone Sodium 1 gm/ (Sodium Chloride) 50 mls @ 100 mls/hr IV ONETIME ONE Stop: 10/19/18 15:04 Last Admin: 10/19/18 14:49 Dose: 100 mls/hr Sodium Chloride (Normal Saline) 1,000 mls @ 999 mls/hr IV ASDIRECTED [facility] Stop: 10/19/18 16:31 Ceftriaxone Sodium 1 gm/ (Sodium Chloride) 50 mls @ 100 mls/hr IV Q24H [facility] Last Admin: 10/20/18 16:39 Dose: 100 mls/hr Potassium Chloride 20 meq/Lidocaine HCl 2 ml/ Sodium Chloride 112 mls @ 50 mls/ hr IV Q2H [facility] Stop: 10/20/18 13:59 Last Admin: 10/20/18 13:58 Dose: 50 mls/hr Potassium Chloride (Klor-Con M20) 40 meq PO ONETIME ONE Stop: 10/21/18 09:01 Last Admin: 10/21/18 09:13 Dose: 40 meq - Exam Quality Assessment: DVT Prophylaxis General: Alert, Cooperative, No Acute Distress. No: Oriented Lungs: Normal Respiratory Effort, Rales, Rhonchi Cardiovascular: Regular Rate, Regular Rhythm, No Murmurs GI/Abdominal Exam: Soft, Non-Tender, No Organomegaly, No Distention Extremities: Non-Tender, No Pedal Edema - Problem List Review Problem List Initiated/Reviewed/Updated: Yes - My Orders Last 24 Hours: My Active Orders 10/21/18 12:38 POTASSIUM,K [CHEM] Timed Convert IV to Saline Lock [OM.PC] Routine 10/21/18 12:45 Levofloxacin/Dextrose 5%-Water [Levaquin in D5W 750 MG/150 ML] 750 mg Premix Bag 1 bag IV Q24H 10/21/18 17:00 Potassium Chloride [Klor-Con M20] 40 meq PO ONETIME ONE - Plan Plan:: ASSESSMENT AND PLAN - Right lung pneumonia with sepsis -Sepsis has resolved. Clinically the patient is doing better. initially felt to have urinary tract infection as the underlying etiology of his fever and lethargy. On review of urinalysis there were many bacteria but no significant elevation in white blood cell count, leukocyte esterase, or nitrites. Chest x-ray obtained today shows evidence of a right lung infiltrate which is likely the source of his infection and recent sepsis. Urine culture showing no growth -discontinue ceftriaxone -levofloxacin 750 mg IV every 24 hours -saline lock IV Suspected acute on chronic kidney disease - unknown baseline for his kidney function. Creatinine trending down. 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 He receives weekly infusions of IVIG. -Hold off on weekly treatment until infection improves (due on Sunday) -Continue MMF Late onset Alzheimer's dementia without behavioral disturbance - no behavior issues overnight. -Continue home medications -Melatonin at bedtime Encounter for palliative care - patient has a DO NOT RESUSCITATE order. Family is not interested in transfer for aggressive workup or intervention with his elevated troponin. They are interested in palliative and conservative management for this infection and resulting conditions. Maintenance issues - - DVT prophylaxis - REGGIE stockings - GI prophylaxis - not indicated - Nutrition - regular diet as tolerated - Mckay catheter - not indicated CODE STATUS - DNR/DNI Admission justification - This patient will be admitted for inpatient services and is medically appropriate meeting medical necessity for inpatient admission as outlined in my documentation. I reasonably expect the patient will require inpatient services that span a period time over 2 midnights. I reasonably expect this patient to be discharged or transferred within 96 hours [facility] Disposition - I would anticipate discharge either back to assisted living or possibly to the residential Primary care physician - Samir Joe M.D.
[2018-10-21] MEDS: Levofloxacin/Dextrose 5%-Water 750 MG in Premix Bag 1 BAG IV SCH (14:24)
[2018-10-21] MEDS: Mirtazapine 15 MG Tab PO SCH (20:01)
[2018-10-21] MEDS: Melatonin 3 MG Tab PO SCH (20:01)
[2018-10-21] MEDS ORDERED: Sodium Chloride 0.9% 500 ML IV ONE (22:56)
[2018-10-22] MEDS: Mycophenolate Mofetil 250 MG Cap PO SCH ×2 (08:11→21:41)
[2018-10-22] MEDS: Escitalopram 10 MG Tab PO SCH (08:12)
[2018-10-22] MEDS: Tamsulosin 0.4 MG Cap.ER PO SCH (08:12)
[2018-10-22] MEDS: Lactobacillus Rhamnosus GG (Probiotic) Cap PO SCH ×2 (08:12→21:42)
[2018-10-22] MEDS: Acetaminophen 325 MG Tab PO PRN ×2 (08:17→15:59)
--- NOTE | 2018-10-22 13:13 | PCM.PN ---
- General Info Date of Service: 10/22/18 Subjective Update: Mr. Durham can use to experience intermittent temperature elevations, fever curve does seem to be slowly decreasing. Energy and appetite level are better than yesterday, lethargy has essentially resolved. He is unable to provide meaningful history concerning symptoms or review of systems because of significant underlying dementia. - Patient Data Vitals - Most Recent: Last Vital Signs Temp 98.2 F 10/22/18 10:33 Pulse 70 10/22/18 10:33 Resp 18 10/22/18 10:33 BP 103/46 L 10/22/18 10:33 Pulse Ox 95 10/22/18 10:33 Weight - Most Recent: 145 lb 9.598 oz I&O - Last 24 Hours: Intake & Output 10/21/18 10/22/18 10/22/18 22:59 06:59 14:59 Intake Total 1499 500 240 Output Total 100 475 Balance 1399 25 240 [place] Results Last 24 Hours: Microbiology 10/19/18 14:38 Urine Culture - Final Urine, Quick Cath (In-Out) NO GROWTH AFTER 2 DAYS 10/21/18 18:19 Clostridioides difficile (PCR) - Final Stool / Feces - Stool, Liquid NEGATIVE CDIFF TOXIN Med Orders - Current: Current Medications Acetaminophen (Tylenol) 650 mg PO Q4H PRN PRN Reason: Pain (Mild 1-3)/fever Last Admin: 10/22/18 08:17 Dose: 650 mg Dimethicone/Zinc Oxide (Rash Relief-Zinc Oxide [place]) 1 gm TOP ASDIRECTED PRN PRN Reason: redness Last Admin: 10/19/18 20:10 Dose: 1 spray Escitalopram Oxalate (Lexapro) 10 mg PO DAILY [facility] Last Admin: 10/22/18 08:12 Dose: 10 mg Haloperidol Lactate (Haldol) 1 mg IVPUSH Q4H PRN PRN Reason: Agitation Heparin Sodium (Porcine) (Heparin Lock Flush 100 Units/Ml) 500 units FLUSH ASDIRECTED PRN PRN Reason: IV Use Last Admin: 10/22/18 00:30 Dose: 500 units Levofloxacin/Dextrose 750 mg/ (Premix) 150 mls @ 100 mls/hr IV Q24H [facility] Last Admin: 10/21/18 14:24 Dose: 100 mls/hr Lactobacillus Rhamnosus (Culturelle) 1 cap PO BID [facility] Last Admin: 10/22/18 08:12 Dose: 1 cap Lorazepam (Ativan) 0.5 mg IVPUSH Q4H PRN PRN Reason: Nausea/Vomiting Magnesium Hydroxide (Milk Of Magnesia) 30 ml PO Q12H PRN PRN Reason: Constipation Melatonin (Melatonin) 9 mg PO BEDTIME [facility] Last Admin: 10/21/18 20:01 Dose: 9 mg Mirtazapine (Remeron) 15 mg PO BEDTIME [facility] Last Admin: 10/21/18 20:01 Dose: 15 mg Mycophenolate Mofetil (Cellcept) 1,000 mg PO BID [facility] Last Admin: 10/22/18 08:11 Dose: 1,000 mg [Namzaric 7 Mg-10 Mg Capsule]*Pt Own Med * 7 mg PO DAILY [facility] Last Admin: 10/22/18 08:12 Dose: Not Given Ondansetron HCl (Zofran Odt) 4 mg PO Q6H PRN PRN Reason: Nausea able to take PO Last Admin: 10/20/18 17:24 Dose: 4 mg Ondansetron HCl (Zofran) 4 mg IV Q6H PRN PRN Reason: Nausea/Vomiting Senna/Docusate Sodium (Senna Plus) 1 tab PO BID PRN PRN Reason: Constipation Tamsulosin HCl (Flomax) 0.4 mg PO DAILY [facility] Last Admin: 10/22/18 08:12 Dose: 0.4 mg Discontinued Medications Sodium Chloride (Normal Saline) 1,000 mls @ 500 mls/hr IV ASDIRECTED [facility] Last Admin: 10/19/18 13:26 Dose: 500 mls/hr Ceftriaxone Sodium 1 gm/ (Sodium Chloride) 50 mls @ 100 mls/hr IV ONETIME ONE Stop: 10/19/18 15:04 Last Admin: 10/19/18 14:49 Dose: 100 mls/hr Sodium Chloride (Normal Saline) 1,000 mls @ 999 mls/hr IV ASDIRECTED [facility] Stop: 10/19/18 16:31 Ceftriaxone Sodium 1 gm/ (Sodium Chloride) 50 mls @ 100 mls/hr IV Q24H [facility] Last Admin: 10/20/18 16:39 Dose: 100 mls/hr Sodium Chloride (Normal Saline) 1,000 mls @ 125 mls/hr IV ASDIRECTED [facility] Last Admin: 10/21/18 10:04 Dose: 125 mls/hr Potassium Chloride 20 meq/Lidocaine HCl 2 ml/ Sodium Chloride 112 mls @ 50 mls/ hr IV Q2H [facility] Stop: 10/20/18 13:59 Last Admin: 10/20/18 13:58 Dose: 50 mls/hr Sodium Chloride (Normal Saline) 500 mls @ 500 mls/hr IV BOLUS ONE Stop: 10/21/18 23:55 Last Admin: 10/21/18 23:20 Dose: 500 mls/hr Potassium Chloride (Klor-Con M20) 40 meq PO ONETIME ONE Stop: 10/21/18 09:01 Last Admin: 10/21/18 09:13 Dose: 40 meq Potassium Chloride (Klor-Con M20) 40 meq PO ONETIME ONE Stop: 10/21/18 17:01 Last Admin: 10/21/18 17:32 Dose: 40 meq - Exam Quality Assessment: DVT Prophylaxis General: Alert, Cooperative, No Acute Distress. No: Oriented Lungs: Normal Respiratory Effort, Crackles, Rhonchi. No: Rales, Rub, Wheezing Cardiovascular: Regular Rate, Regular Rhythm, No Murmurs GI/Abdominal Exam: Soft, Non-Tender, No Organomegaly, No Distention Extremities: Non-Tender, No Pedal Edema - Problem List Review Problem List Initiated/Reviewed/Updated: Yes - My Orders Last 24 Hours: My Active Orders 10/21/18 12:38 Convert IV to Saline Lock [OM.PC] Routine 10/21/18 13:00 Levofloxacin/Dextrose 5%-Water [Levaquin in D5W 750 MG/150 ML] 750 mg Premix Bag 1 bag IV Q24H 10/21/18 18:20 Isolation [COMM] Stat 10/22/18 00:24 Heparin Sodium [Heparin Lock Flush 100 Units/ML] 500 units FLUSH ASDIRECTED PRN - Plan Plan:: ASSESSMENT AND PLAN - Right lung pneumonia with sepsis -Sepsis has resolved. Clinically the patient is doing better. initially felt to have urinary tract infection as the underlying etiology of his fever and lethargy. On review of urinalysis there were many bacteria but no significant elevation in white blood cell count, leukocyte esterase, or nitrites. Chest x-ray obtained yesterday shows evidence of a right lung infiltrate which is likely the source of his infection and recent sepsis. 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 He receives weekly infusions of IVIG. -Hold off on weekly treatment until infection improves (due on Sunday) -Continue MMF Late onset Alzheimer's dementia without behavioral disturbance -Continue home medications -Melatonin at bedtime Encounter for palliative care - patient has a DO NOT RESUSCITATE order. Family is not interested in transfer for aggressive workup or intervention with his elevated troponin. They are interested in palliative and conservative management for this infection and resulting conditions. Maintenance issues - - DVT prophylaxis - REGGIE stockings - GI prophylaxis - not indicated - Nutrition - regular diet as tolerated - Mckay catheter - not indicated CODE STATUS - DNR/DNI Admission justification - This patient will be admitted for inpatient services and is medically appropriate meeting medical necessity for inpatient admission as outlined in my documentation. I reasonably expect the patient will require inpatient services that span a period time over 2 midnights. I reasonably expect this patient to be discharged or transferred within 96 hours [facility]. Disposition - I would anticipate discharge either back to assisted living or possibly to the care home Primary care physician - Samir Joe M.D.
[2018-10-22] MEDS: Levofloxacin/Dextrose 5%-Water 750 MG in Premix Bag 1 BAG IV SCH (13:27)
[2018-10-22] MEDS: Mirtazapine 15 MG Tab PO SCH (21:42)
[2018-10-22] MEDS: Melatonin 3 MG Tab PO SCH (21:42)
[2018-10-23] MEDS: Acetaminophen 325 MG Tab PO PRN ×2 (00:17→09:02)
[2018-10-23] MEDS: Lactobacillus Rhamnosus GG (Probiotic) Cap PO SCH (09:02)
[2018-10-23] MEDS: Tamsulosin 0.4 MG Cap.ER PO SCH (09:03)
[2018-10-23] MEDS: Mycophenolate Mofetil 250 MG Cap PO SCH (09:03)
[2018-10-23] MEDS: Escitalopram 10 MG Tab PO SCH (09:03)
[2018-10-23] MEDS: Ondansetron 4 MG Tab.DIS PO PRN (10:09)
--- NOTE | 2018-10-23 12:16 | PCM.DCSUM1 ---
Discharge Summary - Hospital Course Brief History: Mr. Durham is an 88-year-old gentleman who was admitted through the emergency department with weakness and lethargy, initially thought secondary to urinary tract infection. - Discharge Data Discharge Date: 10/23/18 Discharge Disposition: Home, Self-Care 01 Condition: Fair - Referral to Home Health Primary Care Physician: Samir Joe MD - Discharge Diagnosis/Problem(s) (1) Pneumonia SNOMED Code(s): 260266927 ICD Code: J18.9 - PNEUMONIA, UNSPECIFIED ORGANISM Status: Acute Current Visit: Yes (2) Sepsis SNOMED Code(s): 05980876 ICD Code: A41.9 - SEPSIS, UNSPECIFIED ORGANISM Status: Acute Current Visit: Yes Qualifiers: Sepsis type: sepsis due to unspecified organism Sepsis acute organ dysfunction status: with acute organ dysfunction Severe sepsis acute organ dysfunction type: unspecified Severe sepsis shock status: without septic shock Qualified Code(s): A41.9 - Sepsis, unspecified organism; R65.20 - Severe sepsis without septic shock (3) CKD (chronic kidney disease), stage III SNOMED Code(s): 424763644 ICD Code: N18.3 - CHRONIC KIDNEY DISEASE, STAGE 3 (MODERATE) Status: Chronic Current Visit: Yes (4) CIDP (chronic inflammatory demyelinating polyneuropathy) SNOMED Code(s): 345200231 ICD Code: G61.81 - CHRONIC INFLAMMATORY DEMYELINATING POLYNEURITIS Status: Chronic Current Visit: Yes (5) Alzheimer's dementia without behavioral disturbance SNOMED Code(s): 45290525 ICD Code: G30.9 - ALZHEIMER'S DISEASE, UNSPECIFIED; F02.80 - DEMENTIA IN OTH DISEASES CLASSD ELSWHR W/O BEHAVRL DISTURB Status: Chronic Current Visit: Yes Qualifiers: Alzheimer's disease onset: late-onset Qualified Code(s): G30.1 - Alzheimer' s disease with late onset; F02.80 - Dementia in other diseases classified elsewhere without behavioral disturbance (6) Encounter for palliative care SNOMED Code(s): 484106869 ICD Code: Z51.5 - ENCOUNTER FOR PALLIATIVE CARE Status: Acute Current Visit: Yes (7) FRANCINE (acute kidney injury) SNOMED Code(s): 05409977, 07688074 ICD Code: N17.9 - ACUTE KIDNEY FAILURE, UNSPECIFIED Status: Acute Current Visit: Yes - Patient Summary/Data Consults: Consultations 10/21/18 07:00 PT Evaluation and Treatment [CONS] Routine Please Evaluate and Treat. PT Reason for Consult: Strengthening This query below is only for informational purposes and is not editable. Hospital Course: Mr. Durham presented to the ED from [facility] assisted living by ambulance. He has advanced dementia and is not able to provide reliable history. History is gathered from his family and emergency room personnel. Assisted living staff noted that the patient was more lethargic than usual. They report that normally he is active and alert. Family noticed that he was a little off yesterday but nothing specific. When I attempted to get a review of systems the patient was not sure if he had any of the discussed symptoms. He was not sure if he had pain. He was not able to provide any sort of reliable usable history. Workup in the emergency room did reveal suspicion for urinary tract infection with many bacteria in his urine. His creatinine is 1.9 with a GFR of 34 and unknown baseline. Troponin is elevated at 0.26. He is hypotensive but not tachycardic. He has received 1 L of fluid so far. Case was discussed with his family. They were not interested in transfer for aggressive intervention such as cardiac catheterization. They report date declining quality of life and are not interested in aggressive or potentially painful interventions. They were agreeable to hospitalization for antibiotics and IV fluids to see if this condition can be treated conservatively. On admission urine culture was obtained and he was started on IV antibiotic therapy with ceftriaxone. Initially he was given IV fluids for hydration. After 2 days of IV antibiotic therapy urine culture was showing no growth, chest x-ray was obtained and showed evidence of a right lung infiltrate. Ceftriaxone was discontinued and he was started on levofloxacin 750 mg every 48 hours. After switching antibiotic therapy his temperature curve gradually improved and he had remained essentially afebrile for a period of 48 hours prior to discharge. Follow-up troponin level was obtained after admission and did decrease, elevated troponin was felt to be secondary to stress of his pneumonia. With IV hydration his renal function improved and was felt to be at baseline by the time of discharge. Activity will be as tolerated and he will resume his usual diet. Follow-up appointment will be scheduled with his primary care provider within one week. - Patient Instructions Diet: Usual Diet as Tolerated Activity: As Tolerated Other/Special Instructions: FU appt. w/ primary care provider w/in 1 week - Discharge Plan *PRESCRIPTION DRUG MONITORING PROGRAM REVIEWED*: Not Applicable *COPY OF PRESCRIPTION DRUG MONITORING REPORT IN PATIENT CATHLEEN: Not Applicable Prescriptions/Med Rec: Lactobacillus Rhamnosus GG [Culturelle] 1 cap PO BID #60 cap Levofloxacin [Levaquin] 750 mg PO Q48H #2 tablet Home Medications: Home Meds Escitalopram Oxalate 10 mg PO DAILY 07/16/18 [History] Lactobacillus Acidophilus [Probiotic] 1 each PO BID 07/16/18 [History] Memantine HCl/Donepezil HCl [Namzaric 7 mg-10 mg Capsule] 7 mg PO DAILY [History] Multivitamin [Multivitamins] 1 each PO DAILY 07/16/18 [History] Mycophenolate Mofetil 1,000 mg PO BID 07/16/18 [History] Tamsulosin HCl 0.4 mg PO DAILY 07/16/18 [History] Aspirin/Acetaminophen/Caffeine [Extra Pain Relief Caplet] 1 tab PO DAILY [History] Mirtazapine 15 mg PO BEDTIME 10/19/18 [History] Lactobacillus Rhamnosus GG [Culturelle] 1 cap PO BID #60 cap 10/23/18 [Rx] Levofloxacin [Levaquin] 750 mg PO Q48H #2 tablet 10/23/18 [Rx] Patient Handouts: Urinary Tract Infection, Adult, [id number] Referrals: Samir Joe MD [Primary Care Provider] - 10/31/18 10:20 am (Please arrive 15 minutes early to register for your appointment.) - Discharge Summary/Plan Comment DC Time >30 min.: No - Patient Data Vitals - Most Recent: Last Vital Signs Temp 99.9 F 10/23/18 09:02 Pulse 90 10/23/18 06:29 Resp 18 10/23/18 06:29 BP 136/60 10/23/18 06:29 Pulse Ox 94 L 10/23/18 06:29 Weight - Most Recent: 145 lb 9.598 oz I&O - Last 24 hours: Intake & Output 10/22/18 10/23/18 10/23/18 22:59 06:59 14:59 Intake Total 250 Output Total 75 Balance 175 Med Orders - Current: Current Medications Acetaminophen (Tylenol) 650 mg PO Q4H PRN PRN Reason: Pain (Mild 1-3)/fever Last Admin: 10/23/18 09:02 Dose: 650 mg Dimethicone/Zinc Oxide (Rash Relief-Zinc Oxide [place]) 1 gm TOP ASDIRECTED PRN PRN Reason: redness Last Admin: 10/19/18 20:10 Dose: 1 spray Escitalopram Oxalate (Lexapro) 10 mg PO DAILY [facility] Last Admin: 10/23/18 09:03 Dose: 10 mg Haloperidol Lactate (Haldol) 1 mg IVPUSH Q4H PRN PRN Reason: Agitation Heparin Sodium (Porcine) (Heparin Lock Flush 100 Units/Ml) 500 units FLUSH ASDIRECTED PRN PRN Reason: IV Use Last Admin: 10/22/18 16:31 Dose: 500 units Levofloxacin/Dextrose 750 mg/ (Premix) 150 mls @ 100 mls/hr IV Q24H [facility] Last Admin: 10/22/18 13:27 Dose: 100 mls/hr Lactobacillus Rhamnosus (Culturelle) 1 cap PO BID [facility] Last Admin: 10/23/18 09:02 Dose: 1 cap Lorazepam (Ativan) 0.5 mg IVPUSH Q4H PRN PRN Reason: Nausea/Vomiting Magnesium Hydroxide (Milk Of Magnesia) 30 ml PO Q12H PRN PRN Reason: Constipation Melatonin (Melatonin) 9 mg PO BEDTIME [facility] Last Admin: 10/22/18 21:42 Dose: 9 mg Mirtazapine (Remeron) 15 mg PO BEDTIME [facility] Last Admin: 10/22/18 21:42 Dose: 15 mg Mycophenolate Mofetil (Cellcept) 1,000 mg PO BID [facility] Last Admin: 10/23/18 09:03 Dose: 1,000 mg [Namzaric 7 Mg-10 Mg Capsule]*Pt Own Med * 7 mg PO DAILY [facility] Last Admin: 10/23/18 09:04 Dose: Not Given Ondansetron HCl (Zofran Odt) 4 mg PO Q6H PRN PRN Reason: Nausea able to take PO Last Admin: 10/23/18 10:09 Dose: 4 mg Ondansetron HCl (Zofran) 4 mg IV Q6H PRN PRN Reason: Nausea/Vomiting Senna/Docusate Sodium (Senna Plus) 1 tab PO BID PRN PRN Reason: Constipation Tamsulosin HCl (Flomax) 0.4 mg PO DAILY [facility] Last Admin: 10/23/18 09:03 Dose: 0.4 mg Discontinued Medications Sodium Chloride (Normal Saline) 1,000 mls @ 500 mls/hr IV ASDIRECTED [facility] Last Admin: 10/19/18 13:26 Dose: 500 mls/hr Ceftriaxone Sodium 1 gm/ (Sodium Chloride) 50 mls @ 100 mls/hr IV ONETIME ONE Stop: 10/19/18 15:04 Last Admin: 10/19/18 14:49 Dose: 100 mls/hr Sodium Chloride (Normal Saline) 1,000 mls @ 999 mls/hr IV ASDIRECTED [facility] Stop: 10/19/18 16:31 Ceftriaxone Sodium 1 gm/ (Sodium Chloride) 50 mls @ 100 mls/hr IV Q24H [facility] Last Admin: 10/20/18 16:39 Dose: 100 mls/hr Sodium Chloride (Normal Saline) 1,000 mls @ 125 mls/hr IV ASDIRECTED [facility] Last Admin: 10/21/18 10:04 Dose: 125 mls/hr Potassium Chloride 20 meq/Lidocaine HCl 2 ml/ Sodium Chloride 112 mls @ 50 mls/ hr IV Q2H [facility] Stop: 10/20/18 13:59 Last Admin: 10/20/18 13:58 Dose: 50 mls/hr Sodium Chloride (Normal Saline) 500 mls @ 500 mls/hr IV BOLUS ONE Stop: 10/21/18 23:55 Last Admin: 10/21/18 23:20 Dose: 500 mls/hr Potassium Chloride (Klor-Con M20) 40 meq PO ONETIME ONE Stop: 10/21/18 09:01 Last Admin: 10/21/18 09:13 Dose: 40 meq Potassium Chloride (Klor-Con M20) 40 meq PO ONETIME ONE Stop: 10/21/18 17:01 Last Admin: 10/21/18 17:32 Dose: 40 meq - Exam Quality Assessment: Reports: DVT Prophylaxis General: Reports: Alert, Cooperative, No Acute Distress. Denies: Oriented Lungs: Reports: Clear to Auscultation, Normal Respiratory Effort Cardiovascular: Reports: Regular Rate, Regular Rhythm, No Murmurs GI/Abdominal Exam: Soft, Non-Tender, No Organomegaly, No Distention Extremities: Non-Tender, No Pedal Edema
== END 2018-10-23 13:05 | disposition home or self-care (01) | DRG 871 ==
LOC: JP.ED 12:45 → JP.MS 15:20 → UNDOADMIN 15:20 → JP.MS 16:31 → UNDODISIN 10-23 13:05
PROVIDERS: ADMIT Internal Medicine; ATTEND Hospitalist
DX: A41.9 Sepsis, unspecified organism (principal); J18.9 Pneumonia, unspecified organism; R41.82 Altered mental status, unspecified; I95.9 Hypotension, unspecified; N17.9 Acute kidney failure, unspecified; R53.1 Weakness; G61.81 Chronic inflammatory demyelinating polyneuritis; B96.89 Other specified bacterial agents as the cause of diseases classified elsewhere; N18.3 Chronic kidney disease, stage 3 (moderate); R65.20 Severe sepsis without septic shock; G30.9 Alzheimer's disease, unspecified; Z66 Do not resuscitate; F02.80 Dementia in other diseases classified elsewhere, unspecified severity, without behavioral disturbance, psychotic disturbance, mood disturbance, and anxiety; N40.0 Benign prostatic hyperplasia without lower urinary tract symptoms; Z79.82 Long term (current) use of aspirin; Z79.899 Other long term (current) drug therapy; Z51.5 Encounter for palliative care; G30.1 Alzheimer's disease with late onset; N18.9 Chronic kidney disease, unspecified; D89.89 Other specified disorders involving the immune mechanism, not elsewhere classified; R74.8 Abnormal levels of other serum enzymes; Z98.49 Cataract extraction status, unspecified eye
CPT/HCPCS: 36415; 70450; 80053; 81001; 84484; 85025; 87086; 96361; 96365; 99283; 99285; J0696; J7030; J7050; 71046; 71046-26; 80048; 84132; 85027; 87493; 97110-GP; 97162-GP; 97530-GP; A9270-GY; J1642; J1956; J2001; J3480; J7040

== ENCOUNTER 2018-10-28 11:18 | Inpatient (IN) | payer MEDICARE, BC ==
--- NOTE | 2018-10-28 11:49 | EDM.PDOC ---
ED HPI GENERAL MEDICAL PROBLEM - General Chief Complaint: Fever Stated Complaint: FEVER, POSSIBLE UTI Time Seen by Provider: 10/28/18 11:35 Source of Information: Reports: Family, Old Records History Limitations: Reports: Other (Patient has dementia, not able to offer history) - History of Present Illness INITIAL COMMENTS - FREE TEXT/NARRATIVE: 88 yo male from a local assisted living facility with known dementia presents with a fever last night. Was recently treated for a UTI and possible pneumonia. Is off of his antibiotics currently. No antipyretics were given before arrival. Is not normally on oxygen, but has a prn order for its use at the [facility]. Not eating much at all over the past week, has trouble swallowing felt due to a chronic demyelinating neurological condition that he receives IV Immunoglobulin for. Onset: Gradual Onset Date: 10/27/18 Duration: Hour(s):, Waxing/Waning Location: Reports: Generalized Quality: Reports: Other (no known pain) Severity: Mild Improves with: Reports: Other (unknown) Worsens with: Reports: Other (unknown) Context: Reports: Other (See HPI) Associated Symptoms: Reports: Fever/Chills (last last evening.). Denies: Cough Treatments AIR QUALITY CHEMIST: Reports: Other (see below) (none) - Related Data Allergies Allergy/AdvReac Type Severity Reaction Status Date / Time No Known Allergies Allergy Verified 10/28/18 11:35 Home Meds: Home Meds Escitalopram Oxalate 10 mg PO DAILY 07/16/18 [History] Lactobacillus Acidophilus [Probiotic] 1 each PO BID 07/16/18 [History] Memantine HCl/Donepezil HCl [Namzaric 7 mg-10 mg Capsule] 7 mg PO DAILY [History] Multivitamin [Multivitamins] 1 each PO DAILY 07/16/18 [History] Mycophenolate Mofetil 1,000 mg PO BID 07/16/18 [History] Tamsulosin HCl 0.4 mg PO DAILY 07/16/18 [History] Aspirin/Acetaminophen/Caffeine [Extra Pain Relief Caplet] 1 tab PO DAILY [History] Mirtazapine 15 mg PO BEDTIME 10/19/18 [History] Lactobacillus Rhamnosus GG [Culturelle] 1 cap PO BID #60 cap 10/23/18 [Rx] Levofloxacin [Levaquin] 750 mg PO Q48H #2 tablet 10/23/18 [Rx] Bisacodyl [Dulcolax] 10 mg PO DAILY 10/28/18 [History] QUEtiapine [SEROquel] 50 mg PO BID 10/28/18 [History] Past Medical History HEENT History: Reports: Hard of Hearing Genitourinary History: Reports: BPH Neurological History: Reports: Alzheimers Disease, Other (See Below) 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 Psychiatric History: Reports: Anxiety Immunologic History: Reports: Other (See Below) Other 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 - Infectious Disease History Infectious Disease History: Reports: Chicken Pox, Shingles - Past Surgical History HEENT Surgical History: Reports: Cataract Surgery GI Surgical History: Reports: Colonoscopy Musculoskeletal Surgical History: Reports: Other (See Below) Other Musculoskeletal Surgeries/Procedures:: knee surgery after kicked by horse Social & Family History - Family History Family Medical History: Noncontributory - Caffeine Use Caffeine Use: Reports: Coffee ED ROS GENERAL - Review of Systems Review Of Systems: See Below Constitutional: Reports: Fever (reported at the [facility] last evening.) HEENT: Reports: No Symptoms Respiratory: Reports: Other (snores when sleeping) Cardiovascular: Reports: No Symptoms GI/Abdominal: Reports: No Symptoms : Reports: No Symptoms, Other (recent UTI) Musculoskeletal: Reports: No Symptoms Skin: Reports: No Symptoms Neurological: Reports: Confusion (chronic) ED EXAM, RENAL/ - Physical Exam Exam: See Below Exam Limited By: No Limitations General Appearance: Lethargic (does awaken and follows simple commands, readily falls back to sleep when left undisturbed.) Eye Exam: Bilateral Eye: Normal Inspection, PERRL Ears: Normal External Exam, Normal Canal, Hearing Loss, Other (bilateral hearing aids) Nose: Normal Inspection, Normal Mucosa, No Blood Throat/Mouth: Normal Inspection, Normal Lips, Normal Oropharynx, Normal Voice, No Airway Compromise Head: Atraumatic, Normocephalic Neck: Normal Inspection Respiratory/Chest: No Respiratory Distress, No Accessory Muscle Use, Rhonchi Cardiovascular: Regular Rate, Rhythm, No Edema GI/Abdominal: Normal Bowel Sounds, Soft, Non-Tender, No Distention Back Exam: Normal Inspection Extremities: Normal Inspection, Normal Range of Motion, Non-Tender, No Pedal Edema Neurological: Alert, CN II-XII Intact, No Motor/Sensory Deficits, Other ( demented). No: Oriented, Normal Cognition Psychiatric: Normal Mood, Flat Affect Skin Exam: Warm, Dry, Intact, Normal Color, No Rash Course - Vital Signs Text/Narrative:: Dr. Crump called @ 12:55h Last Recorded V/S: Last Vital Signs Temp 36.2 C 10/28/18 11:33 Pulse 77 10/28/18 11:33 Resp 20 10/28/18 11:33 BP 106/43 L 10/28/18 11:33 Pulse Ox 81 L 10/28/18 11:33 - Orders/Labs/Meds Orders: Active Orders 24 hr Category Date Time Status Bladder Scan [RC] ASDIRECTED Care 10/28/18 11:37 Active Chest 2V [CR] Stat Exams 10/28/18 11:38 Taken CULTURE BLOOD [BC] Stat Lab 10/28/18 12:52 Ordered Levofloxacin/Dextrose 5%-Water [Levaquin in D5W 750 MG/ Med 10/28/18 12:56 Active 150 ML] 750 mg Premix Bag 1 bag IV ONETIME NS + KCl 20mEq/L [Normal Saline with 20 mEq KCl] 1,000 Med 10/28/18 12:15 Active ml IV ASDIRECTED Medication Orders Potassium Chloride/Sodium Chloride (Normal Saline With 20 Meq Kcl) 1,000 mls @ 500 mls/hr IV ASDIRECTED TERRANCE Levofloxacin/Dextrose 750 mg/ (Premix) 150 mls @ 100 mls/hr IV ONETIME ONE Stop: 10/28/18 14:25 Labs: Laboratory Tests 10/28/18 10/28/18 10/28/18 Range/Units 11:49 11:49 11:51 WBC 14.4 H (4.5-11.0) K/uL RBC 3.51 L (4.30-5.90) M/uL Hgb 10.1 L (12.0-15.0) g/dL Hct 32.0 L (40.0-54.0) % MCV 91 (80-98) fL MCH 29 (27-31) pg MCHC 32 (32-36) % Plt Count 378 (150-400) K/uL Sodium 141 (140-148) mmol/L Potassium 3.2 L (3.6-5.2) mmol/L Chloride 103 (100-108) mmol/L Carbon Dioxide 26 (21-32) mmol/L Anion Gap 15.2 H (5.0-14.0) mmol/L BUN 21 H (7-18) mg/dL Creatinine 0.9 (0.8-1.3) mg/dL Est Cr Clr Drug Dosing 57.83 mL/min Estimated GFR (MDRD) > 60 (>60) Glucose 113 H (74-106) mg/dL Calcium 7.4 L (8.5-10.1) mg/dL Urine Color Other A (YELLOW) Urine Appearance Cloudy A (CLEAR) Urine pH 5.5 (5.0-8.0) Ur Specific [place] >= 1.030 (1.008-1.030) Urine Protein 30 H (NEGATIVE) mg/dL Urine Glucose (UA) 100 H (NEGATIVE) mg/dL Urine Ketones Negative (NEGATIVE) mg/dL Urine Occult Blood Negative (NEGATIVE) Urine Nitrite Negative (NEGATIVE) Urine Bilirubin Small (NEGATIVE) Urine Urobilinogen 4.0 H (0.2-1.0) EU/dL Ur Leukocyte Esterase Negative (NEGATIVE) Urine RBC 0-5 (0-5) Urine WBC Not seen (0-5) Ur Epithelial Cells Rare Amorphous Sediment Few Urine Bacteria Not seen Urine Mucus Moderate Urine Other Meds: Medications Generic Name Dose Route Start Last Admin Trade Name Freq PRN Reason Stop Dose Admin Potassium Chloride/Sodium Chloride 1,000 mls @ 500 mls/hr 10/28/18 12:15 Normal Saline With 20 Meq Kcl IV ASDIRECTED TERRANCE Levofloxacin/Dextrose 750 mg/ 150 mls @ 100 mls/hr 10/28/18 12:56 Premix IV 10/28/18 14:25 ONETIME ONE - Radiology Interpretation Free Text/Narrative:: CXR-posterior infiltrate Departure - Departure Time of Disposition: 13:35 Disposition: Admitted As Inpatient 67 Condition: Fair Clinical Impression: Mild dehydration, Hypokalemia Pneumonia Qualifiers: Pneumonia type: due to unspecified organism Laterality: unspecified laterality Lung location: unspecified part of lung Qualified Code(s): J18.9 - Pneumonia, unspecified organism - Discharge Information *PRESCRIPTION DRUG MONITORING PROGRAM REVIEWED*: No *COPY OF PRESCRIPTION DRUG MONITORING REPORT IN PATIENT CATHLEEN: No Referrals: Samir Joe MD [Primary Care Provider] - Forms: ED Department Discharge - My Orders Last 24 Hours: My Active Orders 10/28/18 11:37 Bladder Scan [RC] ASDIRECTED 10/28/18 11:38 Chest 2V [CR] Stat 10/28/18 12:15 NS + KCl 20mEq/L [Normal Saline with 20 mEq KCl] 1,000 ml IV ASDIRECTED 10/28/18 12:52 CULTURE BLOOD [BC] Stat 10/28/18 12:56 Levofloxacin/Dextrose 5%-Water [Levaquin in D5W 750 MG/150 ML] 750 mg Premix Bag 1 bag IV ONETIME - Assessment/Plan Last 24 Hours: My Active Orders 10/28/18 11:37 Bladder Scan [RC] ASDIRECTED 10/28/18 11:38 Chest 2V [CR] Stat 10/28/18 12:15 NS + KCl 20mEq/L [Normal Saline with 20 mEq KCl] 1,000 ml IV ASDIRECTED 10/28/18 12:52 CULTURE BLOOD [BC] Stat 10/28/18 12:56 Levofloxacin/Dextrose 5%-Water [Levaquin in D5W 750 MG/150 ML] 750 mg Premix Bag 1 bag IV ONETIME
[2018-10-28] MEDS ORDERED: NS + KCl 20mEq/L 1,000 ML IV SCH (12:15)
[2018-10-28] MEDS ORDERED: Levofloxacin/Dextrose 5%-Water 750 MG in Premix Bag 1 BAG IV ONE (12:56)
--- NOTE | 2018-10-28 13:14 | CR ---
CHEST: 2 view CLINICAL HISTORY:Fever COMPARISON:October 21, 2018 FINDINGS: There is increasing density at the right lung base with absence of the right heart margin. Right middle lobe atelectasis is a consideration. There is persistent poor definition of the right hemidiaphragm. There is also diffuse left lung infiltrate not seen on prior study. Patient has an [id number] catheter Impression: Increasing bilateral infiltrates There may be atelectasis in the medial segment of the right middle lobe
--- NOTE | 2018-10-28 15:12 | PCM.HP.2 ---
H&P History of Present Illness - General Date of Service: 10/28/18 Admit Problem/Dx: Admission Diagnosis/Problem Admission Diagnosis/Problem Pneumonia Source of Information: Patient, Family, Provider History Limitations: Reports: Altered Mental Status (dementia) - History of Present Illness Initial Comments - Free Text/Narative: CC: fever HPI: [place] presented to the emergency room from his assisted living facility with fever. Because of his dementia history is not reliable and history is gathered from emergency room personnel and his son. Patient was discharged from the hospital about 5 days ago. He has not been eating or drinking well since that time. He reports that he is worried about trying to swallow and thinks that sometimes things get stuck in his throat. He does not report any pain with swallowing. Family and staff have not noticed much of a cough but they did note that he was weak and more lethargic. They noted that he seemed short of breath with activity which is not usual for him. He recently completed treatment with levofloxacin for his pneumonia. Early this morning he had a temperature of 101 at the assisted living facility. Workup in the emergency room revealed evidence for a left-sided pneumonia and possible residual pneumonia on the right. Labs are fairly unremarkable. He will be admitted for IV antibiotic therapy for this pneumonia that started despite being on antibiotics. He is hypoxic and requiring supplemental oxygen. - Related Data Allergies/Adverse Reactions: Allergies Allergy/AdvReac Type Severity Reaction Status Date / Time No Known Allergies Allergy Verified 10/28/18 11:35 Home Medications: Home Meds Escitalopram Oxalate 10 mg PO DAILY 07/16/18 [History] Lactobacillus Acidophilus [Probiotic] 1 each PO BID 07/16/18 [History] Memantine HCl/Donepezil HCl [Namzaric 7 mg-10 mg Capsule] 7 mg PO DAILY [History] Multivitamin [Multivitamins] 1 each PO DAILY 07/16/18 [History] Mycophenolate Mofetil 1,000 mg PO BID 07/16/18 [History] Tamsulosin HCl 0.4 mg PO DAILY 07/16/18 [History] Aspirin/Acetaminophen/Caffeine [Extra Pain Relief Caplet] 1 tab PO DAILY [History] Mirtazapine 15 mg PO BEDTIME 10/19/18 [History] Lactobacillus Rhamnosus GG [Culturelle] 1 cap PO BID #60 cap 10/23/18 [Rx] Bisacodyl [Dulcolax] 10 mg PO DAILY 10/28/18 [History] QUEtiapine [SEROquel] 50 mg PO BID 10/28/18 [History] Past Medical History HEENT History: Reports: Hard of Hearing Genitourinary History: Reports: BPH Neurological History: Reports: Alzheimers Disease, Other (See Below) 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 Psychiatric History: Reports: Anxiety Immunologic History: Reports: Other (See Below) Other 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 - Infectious Disease History Infectious Disease History: Reports: Chicken Pox, Shingles - Past Surgical History HEENT Surgical History: Reports: Cataract Surgery GI Surgical History: Reports: Colonoscopy Musculoskeletal Surgical History: Reports: Other (See Below) Other Musculoskeletal Surgeries/Procedures:: knee surgery after kicked by horse Social & Family History - Family History Family Medical History: Noncontributory - Tobacco Use Smoking Status *Q: Never Smoker - Caffeine Use Caffeine Use: Reports: Coffee - Alcohol Use Alcohol Use History: No H&P Review of Systems - Review of Systems: Review Of Systems: Unable To Obtain Free Text/Narrative: dementia makes history unreliable Exam - Exam Exam: See Below - Vital Signs Vital Signs: Last Vital Signs Temp 36.2 C 10/28/18 11:33 Pulse 77 10/28/18 11:33 Resp 20 10/28/18 11:33 BP 106/43 L 10/28/18 11:33 Pulse Ox 81 L 10/28/18 11:33 Weight: 71.8 kg - Exam Quality Assessment: Supplemental Oxygen General: Alert, Cooperative. No: Mild Distress HEENT: Conjunctiva Clear. No: Mucosa Moist & [place] (dry), Scleral Icterus Neck: Supple, Trachea Midline. No: Lymphadenopathy Lungs: Normal Respiratory Effort, Crackles (diffusely in left lung and few right lung base) Cardiovascular: Regular Rate, Regular Rhythm GI/Abdominal Exam: Normal Bowel Sounds, Soft, No Distention Extremities: Pedal Edema (mild ankle edema bilaterally ). No: Increased Warmth Skin: Warm, Dry Neuro Extensive - Mental Status: Alert, Nl Response to Commands Neuro Extensive - Motor, Sensory, Reflexes: No: Dysarthria, Abnormal Motor, Tremor Psychiatric: Alert, Normal Affect - Patient Data Lab Results Last 24 hrs: Laboratory Results - last 24 hr 09/10/28/18 10/28/18 Range/Units 11:49 11:49 11:51 WBC 14.4 H (4.5-11.0) K/uL RBC 3.51 L (4.30-5.90) M/uL Hgb 10.1 L (12.0-15.0) g/dL Hct 32.0 L (40.0-54.0) % MCV 91 (80-98) fL MCH 29 (27-31) pg MCHC 32 (32-36) % Plt Count 378 (150-400) K/uL Sodium 141 (140-148) mmol/L Potassium 3.2 L (3.6-5.2) mmol/L Chloride 103 (100-108) mmol/L Carbon Dioxide 26 (21-32) mmol/L Anion Gap 15.2 H (5.0-14.0) mmol/L BUN 21 H (7-18) mg/dL Creatinine 0.9 (0.8-1.3) mg/dL Est Cr Clr Drug Dosing 57.83 mL/min Estimated GFR (MDRD) > 60 (>60) Glucose 113 H (74-106) mg/dL Calcium 7.4 L (8.5-10.1) mg/dL Urine Color Other A (YELLOW) Urine Appearance Cloudy A (CLEAR) Urine pH 5.5 (5.0-8.0) Ur Specific [place] >= 1.030 (1.008-1.030) Urine Protein 30 H (NEGATIVE) mg/dL Urine Glucose (UA) 100 H (NEGATIVE) mg/dL Urine Ketones Negative (NEGATIVE) mg/dL Urine Occult Blood Negative (NEGATIVE) Urine Nitrite Negative (NEGATIVE) Urine Bilirubin Small (NEGATIVE) Urine Urobilinogen 4.0 H (0.2-1.0) EU/dL Ur Leukocyte Esterase Negative (NEGATIVE) Urine RBC 0-5 (0-5) Urine WBC Not seen (0-5) Ur Epithelial Cells Rare Amorphous Sediment Few Urine Bacteria Not seen Urine Mucus Moderate Urine Other Result Diagrams: 10/28/18 11:49 10/28/18 11:49 Imaging Impressions Last 24 hrs: CXR - images personally reviewed - diffuse left lung infiltrates, elevation of right hemidiaphragm and RML infiltrate vs atelectasis. No mass. *Q Meaningful Use (ADM) - VTE Risk Assess *Q Each Risk Factor Represents 1 Point: Swollen Legs, Current, Serious lung disease including pneumonia Total Score 1 Point Risk Factors: 2 Each Risk Factor Represents 2 Points: None Total Score 2 Point Risk Factors: 0 Each Risk Factor Represents 3 Points: Age 75 Years or Greater Total Score 3 Point Risk Factors: 3 Each Risk Factor Represents 5 Points: None Total Score 5 Point Risk Factors: 0 Venous Thromboembolism Risk Factor Score *Q: 5 - Problem List (1) Pneumonia SNOMED Code(s): 791472599 ICD Code: J18.9 - PNEUMONIA, UNSPECIFIED ORGANISM Status: Acute Current Visit: Yes Qualifiers: Pneumonia type: due to unspecified organism Laterality: unspecified laterality Lung location: unspecified part of lung Qualified Code(s): J18.9 - Pneumonia, unspecified organism (2) Acute respiratory failure with hypoxia SNOMED Code(s): 72654046, 155935726 ICD Code: J96.01 - ACUTE RESPIRATORY FAILURE WITH HYPOXIA Status: Acute Current Visit: Yes (3) Hypokalemia SNOMED Code(s): 51185223 ICD Code: E87.6 - HYPOKALEMIA Status: Acute Current Visit: Yes (4) CIDP (chronic inflammatory demyelinating polyneuropathy) SNOMED Code(s): 659053254 ICD Code: G61.81 - CHRONIC INFLAMMATORY DEMYELINATING POLYNEURITIS Status: Chronic Current Visit: No (5) Alzheimer's dementia without behavioral disturbance SNOMED Code(s): 23291958 ICD Code: G30.9 - ALZHEIMER'S DISEASE, UNSPECIFIED; F02.80 - DEMENTIA IN OTH DISEASES CLASSD ELSWHR W/O BEHAVRL DISTURB Status: Chronic Current Visit: No Qualifiers: Alzheimer's disease onset: late-onset Qualified Code(s): G30.1 - Alzheimer' s disease with late onset; F02.80 - Dementia in other diseases classified elsewhere without behavioral disturbance (6) Mild dehydration SNOMED Code(s): 2235803942562 ICD Code: E86.0 - DEHYDRATION Status: Acute Current Visit: Yes Problem List Initiated/Reviewed/Updated: Yes Orders Last 24hrs: Active Orders 24 hr Category Date Time Status Patient Status Manage Transfer [TRANSFER] Routine ADT 10/28/18 15:01 Ordered Bladder Scan [RC] ASDIRECTED Care 10/28/18 11:37 Active CULTURE BLOOD [BC] Stat Lab 10/28/18 13:00 Received CULTURE BLOOD [BC] Stat Lab 10/28/18 13:05 Received NS + KCl 20mEq/L [Normal Saline with 20 mEq KCl] 1,000 Med 10/28/18 12:15 Active ml IV ASDIRECTED Resuscitation Status Routine Resus Stat 10/28/18 15:03 Ordered Medication Orders Potassium Chloride/Sodium Chloride (Normal Saline With 20 Meq Kcl) 1,000 mls @ 500 mls/hr IV ASDIRECTED TERRANCE Last Admin: 10/28/18 13:03 Dose: 500 mls/hr Assessment/Plan Comment:: ASSESSMENT AND PLAN - Left lung pneumonia - complicated by acute respiratory failure with hypoxia. Recent antibiotic therapy and this pneumonia developed right at the end of his most recent round of antibiotics. He is hypoxic. -Antibiotic coverage with doxycycline and ceftazidime -Supplement oxygen -As needed nebulizers -Sputum culture if able Hypokalemia - Replacing via IV fluids. -Recheck in the morning Fear of swallowing - no pain. May be part of his dementia process. 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 -Hold weekly IVIG until infection has cleared Alzheimer's dementia without behavioral disturbance - -melatonin at bedtime -Continue home medications Maintenance issues - - DVT prophylaxis - REGGIE stockings - GI prophylaxis - Not indicated - Nutrition - Regular - Mckay catheter - Not indicated CODE STATUS - DNR/DNI Admission justification - This patient will be admitted for inpatient services and is medically appropriate meeting medical necessity for inpatient admission as outlined in my documentation. I reasonably expect the patient will require inpatient services that span a period time over 2 midnights. I reasonably expect this patient to be discharged or transferred within 96 hours [facility]. Disposition - I would anticipate discharge back to the assisted living facility after the hospital stay Primary care physician - Samir Crump M.D. - Mortality Measure Prognosis:: Good
[2018-10-28] MEDS ORDERED: Magnesium Hydroxide 400 MG/5 ML Susp 30 ML Cup PO PRN (16:10)
[2018-10-28] MEDS ORDERED: Ondansetron 4 MG/2 ML SDV IV PRN (16:10)
[2018-10-28] MEDS ORDERED: Ondansetron 4 MG Tab.DIS PO PRN (16:10)
[2018-10-28] MEDS ORDERED: LORazepam 2 MG/ML SDV IVPUSH PRN (16:10)
[2018-10-28] MEDS: NS + KCl 20mEq/L 1,000 ML IV SCH (16:17)
[2018-10-28] MEDS: Doxycycline 100 MG in Sodium Chloride 0.9% 100 ML IV SCH (17:05)
[2018-10-28] MEDS: Acetaminophen 325 MG Tab PO PRN (19:24)
[2018-10-28] MEDS: Albuterol 0.083% 2.5 MG/3 ML Neb Soln NEB PRN (19:24)
[2018-10-28] MEDS: Mycophenolate Mofetil 250 MG Cap PO SCH (20:39)
[2018-10-28] MEDS: Lactobacillus Rhamnosus GG (Probiotic) Cap PO SCH (20:39)
[2018-10-28] MEDS: QUEtiapine 25 MG Tab PO SCH (20:39)
[2018-10-28] MEDS: Melatonin 3 MG Tab PO SCH (20:40)
[2018-10-28] MEDS: Mirtazapine 15 MG Tab PO SCH (20:40)
[2018-10-29] MEDS: Albuterol 0.083% 2.5 MG/3 ML Neb Soln NEB PRN (01:15)
[2018-10-29] MEDS: Acetaminophen 325 MG Tab PO PRN ×2 (01:22→16:46)
[2018-10-29] MEDS: NS + KCl 20mEq/L 1,000 ML IV SCH (03:45)
[2018-10-29] MEDS: Doxycycline 100 MG in Sodium Chloride 0.9% 100 ML IV SCH ×2 (04:40→16:46)
[2018-10-29] MEDS: Lactobacillus Rhamnosus GG (Probiotic) Cap PO SCH ×2 (08:01→20:20)
[2018-10-29] MEDS: Escitalopram 10 MG Tab PO SCH (08:01)
[2018-10-29] MEDS: Memantine 10 MG Tab PO SCH (08:01)
[2018-10-29] MEDS: Mycophenolate Mofetil 250 MG Cap PO SCH ×2 (08:01→20:20)
[2018-10-29] MEDS: Multivitamins with Iron/Calcium/Folic Acid/Minerals Tab PO SCH (08:01)
[2018-10-29] MEDS: QUEtiapine 25 MG Tab PO SCH ×2 (08:01→20:20)
[2018-10-29] MEDS: Tamsulosin 0.4 MG Cap.ER PO SCH (08:01)
[2018-10-29] MEDS ORDERED: MEMANTINE HCL PO SCH (09:00)
[2018-10-29] MEDS ORDERED: Potassium Chloride 20 MEQ Tab.ER PO ONE (09:00)
[2018-10-29] MEDS ORDERED: [UNRECOGNIZED DRUG - OTHER] PO SCH (09:00)
[2018-10-29] MEDS ORDERED: DONEPEZIL HCL PO SCH (09:00)
--- NOTE | 2018-10-29 14:10 | PCM.PN ---
- General Info Date of Service: 10/29/18 Subjective Update: No acute events overnight. He did have some low-grade fevers but they are better this morning. He is less short of breath. He is requiring less supplemental oxygen. Still not much of an appetite but no obvious difficulties with swallowing. Cough is mild and nonproductive. White blood cell count is slightly better aerated potassium still low but a little better than yesterday. Functional Status: Reports: Pain Controlled, Tolerating Diet - Review of Systems General: Denies: Fever Pulmonary: Reports: Shortness of Breath, Cough - Patient Data Vitals - Most Recent: Last Vital Signs Temp 37.0 C 10/29/18 11:36 Pulse 85 10/29/18 11:36 Resp 16 10/29/18 11:36 BP 109/55 L 10/29/18 11:36 Pulse Ox 96 10/29/18 11:36 Weight - Most Recent: 71.214 kg I&O - Last 24 Hours: Intake & Output 10/28/18 10/29/18 10/29/18 22:59 06:59 14:59 Intake Total 380 1424 660 Output Total 200 200 100 Balance 180 1224 560 Lab Results Last 24 Hours: Laboratory Results - last 24 hr 10/29/18 10/29/18 Range/Units 05:56 05:56 WBC 13.8 H (4.5-11.0) K/uL RBC 3.35 L (4.30-5.90) M/uL Hgb 9.7 L (12.0-15.0) g/dL Hct 30.4 L (40.0-54.0) % MCV 91 (80-98) fL MCH 29 (27-31) pg MCHC 32 (32-36) % Plt Count 455 H (150-400) K/uL Sodium 142 (140-148) mmol/L Potassium 3.4 L (3.6-5.2) mmol/L Chloride 107 (100-108) mmol/L Carbon Dioxide 26 (21-32) mmol/L Anion Gap 12.4 (5.0-14.0) mmol/L BUN 16 (7-18) mg/dL Creatinine 0.8 (0.8-1.3) mg/dL Est Cr Clr Drug Dosing 64.84 mL/min Estimated GFR (MDRD) > 60 (>60) Glucose 99 (74-106) mg/dL Calcium 7.2 L (8.5-10.1) mg/dL [place] Results Last 24 Hours: Microbiology 10/28/18 13:05 Aerobic Blood Culture - Preliminary Blood - Arm, Left NO GROWTH AFTER 1 DAY Anaerobic Blood Culture - Preliminary NO GROWTH AFTER 1 DAY 10/28/18 13:00 Aerobic Blood Culture - Preliminary Blood - Port-A-Cath NO GROWTH AFTER 1 DAY Anaerobic Blood Culture - Preliminary NO GROWTH AFTER 1 DAY Med Orders - Current: Current Medications Acetaminophen (Tylenol) 650 mg PO Q4H PRN PRN Reason: Pain (Mild 1-3)/fever Last Admin: 10/29/18 01:22 Dose: 650 mg Albuterol (Proventil Neb Soln) 2.5 mg NEB Q4H PRN PRN Reason: Shortness Of Breath/wheezing Last Admin: 10/29/18 01:15 Dose: 2.5 mg Escitalopram Oxalate (Lexapro) 10 mg PO DAILY [facility] Last Admin: 10/29/18 08:01 Dose: 10 mg Ceftazidime 1 gm/ Sodium (Chloride) 50 mls @ 100 mls/hr IV Q8H [facility] Last Admin: 10/29/18 09:01 Dose: 100 mls/hr Doxycycline Hyclate 100 mg/ (Sodium Chloride) 100 mls @ 100 mls/hr IV Q12H [facility] Last Admin: 10/29/18 04:40 Dose: 100 mls/hr Lactobacillus Rhamnosus (Culturelle) 1 cap PO BID [facility] Last Admin: 10/29/18 08:01 Dose: 1 cap Lorazepam (Ativan) 0.5 mg IVPUSH Q4H PRN PRN Reason: Nausea/Vomiting Magnesium Hydroxide (Milk Of Magnesia) 30 ml PO Q12H PRN PRN Reason: Constipation Melatonin (Melatonin) 9 mg PO BEDTIME [facility] Last Admin: 10/28/18 20:40 Dose: 9 mg Memantine (Namenda) 5 mg PO DAILY [facility] Last Admin: 10/29/18 08:01 Dose: 5 mg Mirtazapine (Remeron) 15 mg PO BEDTIME [facility] Last Admin: 10/28/18 20:40 Dose: 15 mg Multivitamins/Minerals (Thera M Plus) 1 tab PO DAILY [facility] Last Admin: 10/29/18 08:01 Dose: 1 tab Mycophenolate Mofetil (Cellcept) 1,000 mg PO BID [facility] Last Admin: 10/29/18 08:01 Dose: 1,000 mg Ondansetron HCl (Zofran Odt) 4 mg PO Q6H PRN PRN Reason: Nausea able to take PO Ondansetron HCl (Zofran) 4 mg IV Q6H PRN PRN Reason: Nausea/Vomiting Quetiapine Fumarate (Seroquel) 50 mg PO BID [facility] Last Admin: 10/29/18 08:01 Dose: 50 mg Senna/Docusate Sodium (Senna Plus) 1 tab PO BID PRN PRN Reason: Constipation Tamsulosin HCl (Flomax) 0.4 mg PO DAILY [facility] Last Admin: 10/29/18 08:01 Dose: 0.4 mg Discontinued Medications Potassium Chloride/Sodium Chloride (Normal Saline With 20 Meq Kcl) 1,000 mls @ 500 mls/hr IV ASDIRECTED [facility] Last Admin: 10/28/18 13:03 Dose: 500 mls/hr Levofloxacin/Dextrose 750 mg/ (Premix) 150 mls @ 100 mls/hr IV ONETIME ONE Stop: 10/28/18 14:25 Last Admin: 10/28/18 13:31 Dose: 100 mls/hr Potassium Chloride/Sodium Chloride (Normal Saline With 20 Meq Kcl) 1,000 mls @ 100 mls/hr IV ASDIRECTED [facility] Last Admin: 10/29/18 03:45 Dose: 100 mls/hr Potassium Chloride (Klor-Con M20) 40 meq PO ONETIME ONE Stop: 10/29/18 09:01 Last Admin: 10/29/18 08:56 Dose: 40 meq - Exam Quality Assessment: Supplemental Oxygen General: Alert, Cooperative, No Acute Distress. No: Oriented HEENT: Pupils Equal Lungs: Normal Respiratory Effort, Crackles (left lower and mid lung base) Cardiovascular: Regular Rate, Regular Rhythm GI/Abdominal Exam: Soft, No Distention Extremities: No Pedal Edema Skin: Warm, Dry Psy/Mental Status: Alert, Normal Affect - Problem List & Annotations (1) Pneumonia SNOMED Code(s): 878186180 Code(s): J18.9 - PNEUMONIA, UNSPECIFIED ORGANISM Status: Acute Current Visit: Yes Qualifiers: Pneumonia type: due to unspecified organism Laterality: unspecified laterality Lung location: unspecified part of lung Qualified Code(s): J18.9 - Pneumonia, unspecified organism (2) Acute respiratory failure with hypoxia SNOMED Code(s): 65870036, 451786170 Code(s): J96.01 - ACUTE RESPIRATORY FAILURE WITH HYPOXIA Status: Acute Current Visit: Yes (3) Hypokalemia SNOMED Code(s): 77177473 Code(s): E87.6 - HYPOKALEMIA Status: Acute Current Visit: Yes (4) CIDP (chronic inflammatory demyelinating polyneuropathy) SNOMED Code(s): 534582237 Code(s): G61.81 - CHRONIC INFLAMMATORY DEMYELINATING POLYNEURITIS Status: Chronic Current Visit: No (5) Alzheimer's dementia without behavioral disturbance SNOMED Code(s): 88757019 Code(s): G30.9 - ALZHEIMER'S DISEASE, UNSPECIFIED; F02.80 - DEMENTIA IN OTH DISEASES CLASSD ELSWHR W/O BEHAVRL DISTURB Status: Chronic Current Visit: No Qualifiers: Alzheimer's disease onset: late-onset Qualified Code(s): G30.1 - Alzheimer' s disease with late onset; F02.80 - Dementia in other diseases classified elsewhere without behavioral disturbance (6) Mild dehydration SNOMED Code(s): 3120427626892 Code(s): E86.0 - DEHYDRATION Status: Acute Current Visit: Yes - Problem List Review Problem List Initiated/Reviewed/Updated: Yes - My Orders Last 24 Hours: My Active Orders 10/28/18 15:03 Resuscitation Status Routine 10/28/18 16:10 Patient Status [ADT] Routine Antiembolic Devices [RC] .Routine Intake and Output [RC] QSHIFT Notify Provider Vital Signs [RC] ASDIRECTED Oxygen Therapy [RC] PRN RT Aerosol Therapy [RC] ASDIRECTED Up With Assistance [RC] ASDIRECTED VTE/DVT Education [RC] Per Unit Routine Vital Signs [RC] Q4H CULTURE RESPIRATORY + SMEAR [RM] Routine Acetaminophen [Tylenol] 650 mg PO Q4H PRN Albuterol [Proventil Neb Soln] 2.5 mg NEB Q4H PRN Docusate Sodium/Sennosides [Senna Plus] 1 tab PO BID PRN LORazepam [Ativan] 0.5 mg IVPUSH Q4H PRN Magnesium Hydroxide [Milk of Magnesia] 30 ml PO Q12H PRN Ondansetron [Zofran ODT] 4 mg PO Q6H PRN Ondansetron [Zofran] 4 mg IV Q6H PRN Antiembolic Hose [OM.PC] Routine 10/28/18 16:37 Consult to Speech Language Pathology [[employer] Evaluation and Treatment] [CONS] Routine 10/28/18 17:00 Doxycycline [Vibramycin] 100 mg Sodium Chloride 0.9% [Normal Saline] 100 ml IV Q12H 10/28/18 18:00 cefTAZidime Pentahydrate [Fortaz] 1 gm Sodium Chloride 0.9% [Normal Saline] 50 ml IV Q8H 10/28/18 21:00 Lactobacillus Rhamnosus GG [Culturelle] 1 cap PO BID Melatonin 9 mg PO BEDTIME Mirtazapine [Remeron] 15 mg PO BEDTIME Mycophenolate Mofetil [Cellcept] 1,000 mg PO BID QUEtiapine [SEROquel] 50 mg PO BID 10/28/18 Dinner Mechanical Soft Diet [DIET] 10/29/18 07:00 PT Evaluation and Treatment [CONS] Routine 10/29/18 09:00 Escitalopram [Lexapro] 10 mg PO DAILY Memantine [Namenda] 5 mg PO DAILY Multivitamins w-Iron/Ca/FA/Min [Thera M Plus] 1 tab PO DAILY Tamsulosin [Flomax] 0.4 mg PO DAILY 10/29/18 14:09 Convert IV to Saline Lock [OM.PC] Routine 10/30/18 05:00 BASIC METABOLIC PANEL,BMP [CHEM] Timed CBC W/O DIFF,HEMOGRAM [HEME] Timed (1) - Plan Plan:: ASSESSMENT AND PLAN - Left lung pneumonia - complicated by acute respiratory failure with hypoxia. Still hypoxic but a little better today. Clinically looking better. -Antibiotic coverage with doxycycline and ceftazidime -Supplement oxygen -As needed nebulizers -Sputum culture if able Hypokalemia - still low this morning. -40 mEq by mouth this morning -Recheck in the morning Fear of swallowing - no pain. May be part of his dementia process. 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 -Hold weekly IVIG until infection has cleared Alzheimer's dementia without behavioral disturbance - no behavior issues. -melatonin at bedtime -Continue home medications Maintenance issues - - DVT prophylaxis - REGGIE stockings - GI prophylaxis - Not indicated - Nutrition - Regular Disposition - I would anticipate discharge back to the assisted living facility after the hospital stay Primary care physician - Samir Crump M.D.
[2018-10-29] MEDS: Melatonin 3 MG Tab PO SCH (20:21)
[2018-10-29] MEDS: Mirtazapine 15 MG Tab PO SCH (20:21)
[2018-10-30] MEDS: Albuterol 0.083% 2.5 MG/3 ML Neb Soln NEB PRN (01:39)
[2018-10-30] MEDS: Acetaminophen 325 MG Tab PO PRN (01:39)
[2018-10-30] MEDS: Doxycycline 100 MG in Sodium Chloride 0.9% 100 ML IV SCH (04:13)
[2018-10-30] MEDS: Escitalopram 10 MG Tab PO SCH (08:44)
[2018-10-30] MEDS: Memantine 10 MG Tab PO SCH (08:44)
[2018-10-30] MEDS: Tamsulosin 0.4 MG Cap.ER PO SCH (08:44)
[2018-10-30] MEDS: Multivitamins with Iron/Calcium/Folic Acid/Minerals Tab PO SCH (08:44)
[2018-10-30] MEDS: Lactobacillus Rhamnosus GG (Probiotic) Cap PO SCH (08:44)
[2018-10-30] MEDS: Mycophenolate Mofetil 250 MG Cap PO SCH (08:44)
[2018-10-30] MEDS: QUEtiapine 25 MG Tab PO SCH (08:44)
[2018-10-30] MEDS ORDERED: Potassium Chloride 20 MEQ Tab.ER PO ONE (11:00)
--- NOTE | 2018-10-30 14:20 | CRLCT ---
INDICATION: Recurrent pneumonia TECHNIQUE: CT chest was acquired with 100 cc Isovue-300 IV contrast. COMPARISON: None. FINDINGS: Lungs and pleural: Ill-defined airspace infiltrates are predominant in the left upper lobe but also present in the lingula and both lower lobes. Large bilateral pleural effusions, right greater than left. No pneumothorax. Heart and vasculature: Heart size is normal. Thoracic aorta and pulmonary artery are normal in caliber.Coronary artery atherosclerosis is present. Lymph nodes/mediastinum: No mediastinal, hilar, or axillary adenopathy. Thyroid gland is normal. Chest wall: No masses. Upper abdomen: There is a fluid collection between the right diaphragm and liver dome. This loop collection measures approximately 9 cm as demonstrated on series 2, image 63. The fluid collection extends with thin channels along the anterolateral border of the liver with smaller fluid collections adjacent to the gallbladder anteriorly as demonstrated on series 2 images 92-104. Remainder of the upper abdomen is unremarkable. Bones: Unremarkable for age. IMPRESSION: 1. Bilateral pulmonary infiltrates, left lung greater than right, consistent with pneumonia. 2. Large bilateral pleural effusions, right greater than left. 3. Large fluid collection measuring 9 cm in the right subdiaphragmatic space is suspicious for an abscess. Please note that all CT scans at this facility use dose modulation, iterative reconstruction, and/or weight-based dosing when appropriate to reduce radiation dose to as low as reasonably achievable. Dictated by Isaiah Jacome MD @ Oct 30 2018 2:02PM Signed by Dr. Isaiah Jacome @ Oct 30 2018 2:20PM
--- NOTE | 2018-10-30 15:41 | PCM.DCSUM1 ---
Discharge Summary - Hospital Course Brief History: 88-year-old male with a history of mild Alzheimer's dementia, CIDP and recent hospital admission for pneumonia who presented with fever and lethargy. He was admitted for management of left-sided pneumonia and hypoxic respiratory failure. Diagnosis: Stroke: No - Discharge Data Discharge Date: 10/30/18 Discharge Disposition: DC/Tfer to Acute Hospital 02 Condition: Stable - Referral to Home Health Primary Care Physician: Samir Joe MD - Discharge Diagnosis/Problem(s) (1) Pneumonia SNOMED Code(s): 151564132 ICD Code: J18.9 - PNEUMONIA, UNSPECIFIED ORGANISM Status: Acute Current Visit: Yes Qualifiers: Pneumonia type: due to unspecified organism Laterality: unspecified laterality Lung location: unspecified part of lung Qualified Code(s): J18.9 - Pneumonia, unspecified organism (2) Acute respiratory failure with hypoxia SNOMED Code(s): 45964735, 803057467 ICD Code: J96.01 - ACUTE RESPIRATORY FAILURE WITH HYPOXIA Status: Acute Current Visit: Yes (3) Hypokalemia SNOMED Code(s): 88729875 ICD Code: E87.6 - HYPOKALEMIA Status: Acute Current Visit: Yes (4) CIDP (chronic inflammatory demyelinating polyneuropathy) SNOMED Code(s): 860497424 ICD Code: G61.81 - CHRONIC INFLAMMATORY DEMYELINATING POLYNEURITIS Status: Chronic Current Visit: No (5) Alzheimer's dementia without behavioral disturbance SNOMED Code(s): 84046196 ICD Code: G30.9 - ALZHEIMER'S DISEASE, UNSPECIFIED; F02.80 - DEMENTIA IN OTH DISEASES CLASSD ELSWHR W/O BEHAVRL DISTURB Status: Chronic Current Visit: No Qualifiers: Alzheimer's disease onset: late-onset Qualified Code(s): G30.1 - Alzheimer' s disease with late onset; F02.80 - Dementia in other diseases classified elsewhere without behavioral disturbance (6) Mild dehydration SNOMED Code(s): 7239321323678 ICD Code: E86.0 - DEHYDRATION Status: Acute Current Visit: Yes - Patient Summary/Data Consults: Consultations 10/28/18 16:37 Consult to Speech Language Pathology [PEST CONTROL SERVICE TECHNICIAN Evaluation and Treatment] [CONS] Routine Please Evaluate and Treat PEST CONTROL SERVICE TECHNICIAN Reason for Consult: Swallow This query below is only for informational purposes and is not editable. Admission Diagnosis/Problem: Pneumonia 10/29/18 07:00 PT Evaluation and Treatment [CONS] Routine Please Evaluate and Treat. PT Reason for Consult: Strengthening This query below is only for informational purposes and is not editable. Labs Pending at D/C: final results of blood cultures which are negative at 48 hours Hospital Course: [place] presented to the emergency room with fever and lethargy from his assisted living facility. He had recently completed treatment for his pneumonia that was diagnosed on 19 October. Workup in the emergency room suggested a left lung pneumonia and possible residual infiltrate on the right, the location of his original pneumonia. His white blood cell count was elevated at more than 14,000. he required supplemental oxygen. He was started on doxycycline and ceftazidime and admitted to the hospital for further management. overnight following admission there were no acute issues and initially he showed some improvement. He was more alert and interactive the day after admission. His temperature curve initially improved. His white blood cell count was down to just over 13,000 by the morning after admission. His supplemental oxygen requirement had decreased down to 3 L after initially requiring up to 5 L. He did well throughout the course of the day following admission. Overnight he did have somewhat of a decline with more lethargy and low-grade temperature elevations. His supplemental oxygen requirement increased and he was on 5 L of oxygen by the morning of discharge. His WBC had increased to 15,000. His lung examination had worsened from the day after admission to the day of discharge with increased crackles and decreased breath sounds in the right lung base. With the increased hypoxia and increased lethargy I performed a CT scan of the chest. This showed the left-sided pneumonia that we saw with the chest x-ray. Also noted was a moderate left and a large right pleural effusion. Additionally we saw a large fluid collection under the diaphragm which extended anteriorly to near the gallbladder and laterally along the chest wall in the upper portion of the abdomen. This was concerning for abscess according to the radiologist report. I did discuss the case with her surgeon and he felt that the patient would not be a good surgical candidate for open drainage but thought if percutaneous drainage could be obtained this would be a much better option. I discussed the case with the on-call hospitalist at [facility] in [place]. Dr. Ling graciously accepted the care of the patient in transfer. He'll be transferred versus [facility] ambulance to their hospital for direct admission. the patient will be transferring to [place] per family preference since this is a central location for his sons. the benefits of transfer outweigh the risks of transfer at this time. - Discharge Plan *PRESCRIPTION DRUG MONITORING PROGRAM REVIEWED*: No *COPY OF PRESCRIPTION DRUG MONITORING REPORT IN PATIENT CATHLEEN: No Home Medications: Home Meds Escitalopram Oxalate 10 mg PO DAILY 07/16/18 [History] Lactobacillus Acidophilus [Probiotic] 1 each PO BID 07/16/18 [History] Multivitamin [Multivitamins] 1 each PO DAILY 07/16/18 [History] Mycophenolate Mofetil 1,000 mg PO BID 07/16/18 [History] Tamsulosin HCl 0.4 mg PO DAILY 07/16/18 [History] Aspirin/Acetaminophen/Caffeine [Extra Pain Relief Caplet] 1 tab PO DAILY [History] Mirtazapine 15 mg PO BEDTIME 10/19/18 [History] Lactobacillus Rhamnosus GG [Culturelle] 1 cap PO BID #60 cap 10/23/18 [Rx] Bisacodyl [Dulcolax] 10 mg PO DAILY 10/28/18 [History] QUEtiapine [SEROquel] 50 mg PO BID 10/28/18 [History] Patient's Own Medication [Ptom] 7 mg PO DAILY 10/29/18 [History] Forms: ED Department Discharge Referrals: aSmir Joe MD [Primary Care Provider] - - Discharge Summary/Plan Comment DC Time >30 min.: Yes (60 - transfer to acute Hospital) - Patient Data Vitals - Most Recent: Last Vital Signs Temp 36.9 C 10/30/18 14:32 Pulse 82 10/30/18 14:32 Resp 24 H 10/30/18 14:32 BP 121/65 10/30/18 14:32 Pulse Ox 93 L 10/30/18 14:32 Weight - Most Recent: 71.214 kg I&O - Last 24 hours: Intake & Output 10/30/18 10/30/18 10/30/18 06:59 14:59 22:59 Intake Total 250 1080 Balance 250 1080 Lab Results - Last 24 hrs: Laboratory Results - last 24 hr 10/30/18 10/30/18 Range/Units 05:50 05:50 WBC 15.0 H (4.5-11.0) K/uL RBC 3.11 L (4.30-5.90) M/uL Hgb 9.2 L (12.0-15.0) g/dL Hct 27.9 L (40.0-54.0) % MCV 90 (80-98) fL MCH 30 (27-31) pg MCHC 33 (32-36) % Plt Count 692 H (150-400) K/uL Sodium 142 (140-148) mmol/L Potassium 3.6 (3.6-5.2) mmol/L Chloride 108 (100-108) mmol/L Carbon Dioxide 25 (21-32) mmol/L Anion Gap 8.7 (5.0-14.0) mmol/L BUN 15 (7-18) mg/dL Creatinine 0.8 (0.8-1.3) mg/dL Est Cr Clr Drug Dosing 64.84 mL/min Estimated GFR (MDRD) > 60 (>60) Glucose 126 H (74-106) mg/dL Calcium 7.5 L (8.5-10.1) mg/dL FÁTIMA Results - Last 24 hrs: Microbiology 10/28/18 13:05 Aerobic Blood Culture - Preliminary Blood - Arm, Left NO GROWTH AFTER 2 DAYS Anaerobic Blood Culture - Preliminary NO GROWTH AFTER 2 DAYS 10/28/18 13:00 Aerobic Blood Culture - Preliminary Blood - Port-A-Cath NO GROWTH AFTER 2 DAYS Anaerobic Blood Culture - Preliminary NO GROWTH AFTER 2 DAYS Med Orders - Current: Current Medications Acetaminophen (Tylenol) 650 mg PO Q4H PRN PRN Reason: Pain (Mild 1-3)/fever Last Admin: 10/30/18 01:39 Dose: 650 mg Albuterol (Proventil Neb Soln) 2.5 mg NEB Q4H PRN PRN Reason: Shortness Of Breath/wheezing Last Admin: 10/30/18 01:39 Dose: 2.5 mg Escitalopram Oxalate (Lexapro) 10 mg PO DAILY [facility] Last Admin: 10/30/18 08:44 Dose: 10 mg Heparin Sodium (Porcine) (Heparin Lock Flush 100 Units/Ml) 500 units FLUSH ASDIRECTED PRN PRN Reason: Keep Vein Open Last Admin: 10/30/18 11:32 Dose: 500 units Ceftazidime 1 gm/ Sodium (Chloride) 50 mls @ 100 mls/hr IV Q8H [facility] Last Admin: 10/30/18 10:31 Dose: 100 mls/hr Doxycycline Hyclate 100 mg/ (Sodium Chloride) 100 mls @ 100 mls/hr IV Q12H [facility] Last Admin: 10/30/18 04:13 Dose: 100 mls/hr Lactobacillus Rhamnosus (Culturelle) 1 cap PO BID [facility] Last Admin: 10/30/18 08:44 Dose: 1 cap Lorazepam (Ativan) 0.5 mg IVPUSH Q4H PRN PRN Reason: Nausea/Vomiting Magnesium Hydroxide (Milk Of Magnesia) 30 ml PO Q12H PRN PRN Reason: Constipation Melatonin (Melatonin) 9 mg PO BEDTIME [facility] Last Admin: 10/29/18 20:21 Dose: 9 mg Memantine (Namenda) 5 mg PO DAILY [facility] Last Admin: 10/30/18 08:44 Dose: 5 mg Mirtazapine (Remeron) 15 mg PO BEDTIME [facility] Last Admin: 10/29/18 20:21 Dose: 15 mg Multivitamins/Minerals (Thera M Plus) 1 tab PO DAILY [facility] Last Admin: 10/30/18 08:44 Dose: 1 tab Mycophenolate Mofetil (Cellcept) 1,000 mg PO BID [facility] Last Admin: 10/30/18 08:44 Dose: 1,000 mg Ondansetron HCl (Zofran Odt) 4 mg PO Q6H PRN PRN Reason: Nausea able to take PO Ondansetron HCl (Zofran) 4 mg IV Q6H PRN PRN Reason: Nausea/Vomiting Quetiapine Fumarate (Seroquel) 50 mg PO BID [facility] Last Admin: 10/30/18 08:44 Dose: 50 mg Senna/Docusate Sodium (Senna Plus) 1 tab PO BID PRN PRN Reason: Constipation Tamsulosin HCl (Flomax) 0.4 mg PO DAILY [facility] Last Admin: 10/30/18 08:44 Dose: 0.4 mg Discontinued Medications Potassium Chloride/Sodium Chloride (Normal Saline With 20 Meq Kcl) 1,000 mls @ 500 mls/hr IV ASDIRECTED [facility] Last Admin: 10/28/18 13:03 Dose: 500 mls/hr Levofloxacin/Dextrose 750 mg/ (Premix) 150 mls @ 100 mls/hr IV ONETIME ONE Stop: 10/28/18 14:25 Last Admin: 10/28/18 13:31 Dose: 100 mls/hr Potassium Chloride/Sodium Chloride (Normal Saline With 20 Meq Kcl) 1,000 mls @ 100 mls/hr IV ASDIRECTED [facility] Last Admin: 10/29/18 03:45 Dose: 100 mls/hr Potassium Chloride (Klor-Con M20) 40 meq PO ONETIME ONE Stop: 10/29/18 09:01 Last Admin: 10/29/18 08:56 Dose: 40 meq Potassium Chloride (Klor-Con M20) 40 meq PO ONETIME ONE Stop: 10/30/18 11:01 Last Admin: 10/30/18 11:32 Dose: 40 meq - Exam Quality Assessment: Reports: Supplemental Oxygen General: Reports: Alert, Cooperative, Lethargic. Denies: Oriented HEENT: Reports: Pupils Equal Lungs: Reports: Decreased Breath Sounds (both bases right greater than left), Crackles (diffuse throughout the left lung and mild on the right). Denies: Normal Respiratory Effort (mild increase in work of breathing) Cardiovascular: Reports: Regular Rate, Regular Rhythm GI/Abdominal Exam: Soft, Non-Tender, No Distention Extremities: No Pedal Edema. No: Increased Warmth Skin: Reports: Warm, Dry Psy/Mental Status: Reports: Alert. Denies: Agitated
== END 2018-10-30 16:39 | DRG 193 ==
LOC: JP.ED 11:18 → JP.MS 15:01 → UNDOADMIN 15:01 → JP.MS 16:10 → UNDODISIN 10-30 16:39
PROVIDERS: ADMIT Internal Medicine; ATTEND Internal Medicine
DX: J18.9 Pneumonia, unspecified organism (principal); J96.01 Acute respiratory failure with hypoxia; G61.81 Chronic inflammatory demyelinating polyneuritis; H91.90 Unspecified hearing loss, unspecified ear; N40.0 Benign prostatic hyperplasia without lower urinary tract symptoms; G30.9 Alzheimer's disease, unspecified; F02.80 Dementia in other diseases classified elsewhere, unspecified severity, without behavioral disturbance, psychotic disturbance, mood disturbance, and anxiety; F41.9 Anxiety disorder, unspecified; E87.6 Hypokalemia; G30.1 Alzheimer's disease with late onset; E86.0 Dehydration; Z79.82 Long term (current) use of aspirin; Z79.899 Other long term (current) drug therapy; Z98.49 Cataract extraction status, unspecified eye
CPT/HCPCS: 36415; 51798; 71046 ×2; 80048; 81001; 85027; 87040 ×2; 96365; 96367; 99284 ×2; J1956; J3480; 71260; 92610-GN; 94640; 97161-GP; A9270-GY; J0713; J1642; J3490; J7030; J7050